=== PATIENT | female | born 1935 | race Caucasian/White ===

== ENCOUNTER 2017-12-29 16:05 | Inpatient (IN) | payer OTHER ==
--- NOTE | 2017-12-29 16:14 | PDOC ---
Attending Attestation - HPI HPI: 12/29/17 18:22 The patient is an 82-year-old female from [facility], with a significant past medical history of HTN, RA, a-fib, CHF, and COPD, who presents to the ED with shortness of breath today. The HPI is limited due to patients mental status. Allergies: NKA PCP: Dr Jenna Zuniga - Physicial Exam PE: 12/29/17 18:47 GENERAL: The patient is in no acute distress. Afebrile. HEAD: Normal with no signs of trauma. EYES: PERRLA, EOMI, sclera anicteric, conjunctiva clear. ENT: Ears normal, nares patent, oropharynx clear without exudates. Moist mucous membranes. NECK: Normal range of motion, supple without lymphadenopathy, JVD, or masses. LUNGS: (+)Rhonchorous breath sounds. HEART:Regular rate and rhythm, normal S1 and S2 without murmur, rub or gallop. ABDOMEN: Soft, nontender, normoactive bowel sounds. No guarding, no rebound. EXTREMITIES: Normal range of motion, no edema. No clubbing or cyanosis. No erythema, or tenderness. NEUROLOGICAL: (+)Patient seems confused. MUSCULOSKELETAL: Back non-tender to palpation, no CVA tenderness SKIN: Warm, Dry, normal turgor, no rashes or lesions noted. <Haydee Kumar - Last Filed: 12/29/17 18:46> - Resident Resident Name: Thai Harris - ED Attending Attestation I have performed the following: I have examined & evaluated the patient, The case was reviewed & discussed with the resident, I agree w/resident's findings & plan, Exceptions are as noted - Medical Decision Making 12/29/17 17:09 Ms Mays presents to the ER due to fevers and cough Pt is confused There is no long-term paperwork present with this patient Will do sepsis orderset Will do CXR Will give empiric abx EKG:Afib, rate of 96 bpm, axis nnml, no st elevations or depressions, low voltage, t waves upright 12/29/17 18:25 Laboratory Tests 12/29/17 12/29/17 12/29/17 16:19 16:19 16:19 WBC 15.1 H Hgb 12.3 Plt Count 455 H INR 1.95 H Lactic Acid 1.8 CXR: Infiltrate R middle lobe Will give Vanc and ZOsyn Pt s/p recent admission to OSH (then transferred to [facility]) 12/29/17 18:32 Clinical Impression: pneumonia, initial presentation UA pending <Henna Holedr - Last Filed: 12/31/17 08:12> Attestations - Attestations 12/29/17 18:49 Documentation prepared by Haydee Kumar, acting as medical assembler for Henna Holder MD. <Haydee Kumar - Last Filed: 12/29/17 18:46>
[2017-12-29 16:20] VITALS: BMI 40.3
--- NOTE | 2017-12-29 16:22 | PDOC ---
History of Present Illness - General Chief Complaint: Shortness of Breath Stated Complaint: SHORTNESS OF BREATH - History of Present Illness Initial Comments: 12/29/17 16:19 82 yo F with h/o HTN, RA, A-fib, CHF, COPD, recent bronchial PNA who BIBA from [facility] ( [facility]) with SOB. Per intermediate staff patient with increased SOB, and lethargy this afternoon following physical therapy and hypoxic on room air, with O2 92% 3 L NC. Patient placed on 12 L NRB per EMS and O2 improved to 90%, with improvement in mental status, more alert. Patient is poor historian with poor insight. Was slightly tachycardic 126. Patient without complaints. Continued productive cough, with clear sputum production following admission from OSH. Denies F/C, N/V, orthpnea, CP, SOB, abdominal pain, diarrhea, constipation, urinary complaints, weakness, lightheadedness, sensory changes. PMHx: as noted above. Denies h/o ACS/OR. ROS: as noted above SHx: Denies Etoh, IVDA. Distant smoking history. PMD: Dr Jenna Zuniga Past History - Past Medical History Allergies/Adverse Reactions: Allergies Allergy/AdvReac Type Severity Reaction Status Date / Time No Known Allergies Allergy Verified 12/29/17 16:37 Home Medications: Ambulatory Orders Abatacept [Orencia] 125 mg SQ WEEKLY 12/29/17 Acetaminophen 325 mg PO QID 12/29/17 Albuterol 2.5/Ipratropium 0.5 [Duoneb -] 1 amp NEB QID 12/29/17 Albuterol Sulfate Inhaler - [Ventolin HFA Inhaler -] 2 puff IH QID 12/29/17 Apixaban [Eliquis] 5 mg PO BID 12/29/17 Bacitracin Zinc 1 each TP HS 12/29/17 Carbidopa/Levodopa [Carbidopa-Levodopa 25-100 Tab] 1 each PO TID 12/29/17 Diclofenac Sodium [Diclo Gel] 1 each TP QID 12/29/17 Digoxin 125 mcg PO DAILY 12/29/17 Docusate Sodium [Colace] 200 mg PO DAILY 12/29/17 Fluticasone Propionate [Flovent Diskus] 2 sprays IN DAILY 12/29/17 Folic Acid 1 mg PO DAILY 12/29/17 Furosemide [Lasix] 40 mg PO DAILY 12/29/17 Gabapentin 400 mg PO TID 12/29/17 Guaifenesin 100 mg PO QID 12/29/17 HYDROmorphone [Dilaudid -] 2 mg PO PRN 12/29/17 Levothyroxine [Synthroid -] 88 mcg PO DAILY 12/29/17 Loratadine 10 mg PO DAILY 12/29/17 Methotrexate Sodium [Methotrexate] 2.5 mg PO WEEKLY 12/29/17 Methylprednisolone [Medrol -] 4 mg PO ASDIR 12/29/17 Metoprolol Tartrate 50 mg PO BID 12/29/17 Oyster Shell+D 250 mg Tablet 1 tab PO DAILY 12/29/17 Sennosides [Senna] 2 tab PO DAILY 12/29/17 Silver Sulfadiazine 1% Top Cr [Silvadene -] 1 applic TP HS 12/29/17 - Suicide/Smoking/Psychosocial Hx Smoking History: Never smoked Have you smoked in the past 12 months: No Information on smoking cessation initiated: No Hx Alcohol Use: No Drug/Substance Use Hx: No Review of Systems - Review of Systems Comments:: 12/29/17 16:20 GENERAL/CONSTITUTIONAL: No fever or chills. No weakness. HEAD, EYES, EARS, NOSE AND THROAT: No change in vision. No ear pain or discharge. No sore throat. CARDIOVASCULAR: No chest pain or shortness of breath RESPIRATORY: +SOB. No cough, wheezing, or hemoptysis. GASTROINTESTINAL: No nausea, vomiting, diarrhea or constipation. GENITOURINARY: No dysuria, frequency, or change in urination. MUSCULOSKELETAL: No joint or muscle swelling or pain. No neck or back pain. SKIN: No rash NEUROLOGIC: No headache, vertigo, loss of consciousness, or change in strength/ sensation. ENDOCRINE: No increased thirst. No abnormal weight change HEMATOLOGIC/LYMPHATIC: No anemia, easy bleeding, or history of blood clots. ALLERGIC/IMMUNOLOGIC: No hives or skin allergy. *Physical Exam - Vital Signs Last Vital Signs Temp Pulse Resp BP Pulse Ox 101.6 F H 89 16 111/84 94 L 12/29/17 16:10 12/29/17 16:10 12/29/17 16:10 12/29/17 16:10 12/29/17 16:10 - Physical Exam Comments: 12/29/17 16:21 GENERAL: Awake, alert, and fully oriented, in no acute distress HEAD: No signs of trauma, normocephalic, atraumatic EYES: PERRLA, EOMI, sclera anicteric, conjunctiva clear ENT: Hearing grossly normal, nares patent, oropharynx clear without exudates. Moist mucosa NECK: Normal ROM, supple, no lymphadenopathy, JVD, or masses LUNGS:+ diffuse rales, and exp rhonci. HEART: Regular rate and rhythm, normal S1 and S2, no murmurs, rubs or gallops, peripheral pulses normal and equal bilaterally. ABDOMEN: Soft, nontender, normoactive bowel sounds. No guarding, no rebound. No masses EXTREMITIES :2 + BL LE edema. Normal inspection, Normal range of motion, no edema. No clubbing or cyanosis. SKIN: Warm, Dry, normal turgor, no rashes or lesions noted ED Treatment Course - LABORATORY CBC & Chemistry Diagram: 12/29/17 16:19 12/29/17 18:00 Medical Decision Making - Medical Decision Making 12/29/17 16:21 82 yo F with h/o HTN, RA, A-fib ( Eliquis) , CHF, COPD,recent bronchial PNA who BIBA from OS ( [facility]) increased SOB, and lethargy this afternoon following physical therapy. Patient noted to be hypoxic on room air, with O2 increased to 92% following 3 L NC and slightly tachycardic 126. Patient without complaints. Continued productive cough, with clear sputum production. VSS, Rectal Temp 101.6, A&Ox3. + Diffuse exp rhonci and BL LL base rales. ACS/OR r/ o. Will consider PNA, acute CHF exacerbation. low risk PE based on Weils critera. Will assess for electrolyte abnml, toxic or metabolic derangements,acid -base disturbances, or underlying infection. ED Course: Sepsis Protocol CBC,CMP, PT/INR, Cardiac Pr., BNP, LA Blood Cx. Urine Cx. UA EKG, CXR 12/29/17 15:55 EKG: A-fib with RvR, Low voltage criteria. RBBB, No acute PATO, STD, or TWI. 12/29/17 16:45 WBC: 15.1 Called [facility] , sent over medical records. 12/29/17 18:34 WBC 15.1 Lactic Acid 2.2. 12/29/17 19:03 CXR: Cardiomegaly, BL pleural effusions. Possible middle right lobe infiltrate. Started on Vanc and Zosyn. *DC/Admit/Observation/Transfer Diagnosis at time of Disposition: Right middle lobe pneumonia Qualifiers: Pneumonia type: due to unspecified organism Qualified Code(s): J18.1 - Lobar pneumonia, unspecified organism - Discharge Dispostion Disposition: HOME Condition at time of disposition: Stable Decision to Admit order: Yes - Referrals Referrals: Jazmin Allison MD [Primary Care Provider] - - Patient Instructions - Post Discharge Activity
[2017-12-29 16:34] LABS: BASO % 0.8 % (0-2.0); EOS % 0.9 % (0-4.5); HEMATOCRIT 37.6 % (32.4-45.2); HEMOGLOBIN 12.3 GM/dL (10.7-15.3); LYMPH % 15.6 % (8-40); MCH 32.7 pg (25.7-33.7); MCHC 32.9 g/dl (32.0-36.0); MEAN CELL VOLUME 99.7 fl (80-96); MONO % 9.6 % (3.8-10.2); NEUT % 73.1 % (42.8-82.8); PLATELET COUNT 455 K/MM3 (134-434); RBC 3.77 M/mm3 (3.60-5.2); WHITE BLOOD COUNT 15.1 K/mm3 (4.0-10.0)
[2017-12-29] MEDS ORDERED: SODIUM CHLORIDE 1,000 ML IV STA (16:52)
[2017-12-29 17:25] LABS: INR 1.95 (0.82-1.09)
[2017-12-29 17:27] LABS: ACTIVATED PTT 38.5 SECONDS (26.9-34.4)
[2017-12-29] MEDS ORDERED: ACETAMINOPHEN 1000 MG/100 ML VIAL (NON FORMULARY) IVPB ONE (17:33)
[2017-12-29] MEDS ORDERED: ACETAMINOPHEN INJECTION 100 ML IVPB ONE (17:35)
[2017-12-29] MEDS ORDERED: PIPERACILLIN/TAZOB 4.5 GM 4.5 GM in DEXTROSE 5%-WATER 100 ML IVPB ONE (18:31)
[2017-12-29] MEDS ORDERED: VANCOMYCIN 1,000 MG in DEXTROSE 5%-WATER - 250 ML IVPB ONE (18:31)
[2017-12-29] MEDS ORDERED: PIPERACILLIN/TAZOB 4.5 GM 4.5 GM/100 ML BAG IVPB ONE (18:41)
[2017-12-29] MEDS ORDERED: VANCOMYCIN 1 GRAM (PRE-DOCKED) 1,000 MG/250 ML BAG IVPB ONE (18:41)
[2017-12-29 18:49] LABS: ALBUMIN 2.3 g/dl (3.4-5.0); ANION GAP 8 (8-16); BILIRUBIN,TOTAL 0.6 mg/dL (0.2-1.0); BLOOD UREA NITROGEN 8 mg/dL (7-18); CALCIUM 7.4 mg/dL (8.5-10.1); CHLORIDE 94 mmol/L (98-107); CO2 32 mmol/L (21-32); CREATININE 0.7 mg/dL (0.55-1.02); GLUCOSE,RANDOM 119 mg/dL (74-106); POTASSIUM 3.6 mmol/L (3.5-5.1); SGOT/AST 15 U/L (15-37); SGPT/ALT 6 U/L (12-78); SODIUM 134 mmol/L (136-145); TOT PROT 5.6 g/dl (6.4-8.2)
[2017-12-29 18:51] LABS: ALK PHOS 147 U/L (45-117)
[2017-12-29 19:01] LABS: URINE APPEARANCE SLCLOUDY; URINE BILIRUBIN NEGATIVE (<2.0 mg/dL); URINE COLOR YELLOW; URINE GLUCOSE (UA) NEGATIVE (NEGATIVE); URINE KETONE NEGATIVE (NEGATIVE); URINE NITRITE NEGATIVE (NEGATIVE); URINE PROTEIN NEGATIVE (NEGATIVE); URINE UROBILINOGEN NEGATIVE mg/dL (0.2-1.0)
[2017-12-29 19:09] LABS: URINE LEUK ESTERASE 3+ (NEGATIVE)
[2017-12-29 19:11] LABS: EPI CELLS RARE /HPF (FEW); URINE HYALINE CAST 4 /lpf; URINE MUCUS RARE
--- NOTE | 2017-12-29 19:26 | CON.ID ---
Consult Consult Specialty:: infectious diseases Reason for Consultation:: pneumonia - History of Present Illness Chief Complaint: sob sputum production History of Present Illness: 82 yo F with h/o HTN, RA, A-fib, CHF, COPD, recent bronchial PNA who BIBA from [facility] ( [facility]) with SOB. Per custodial staff patient with increased SOB, and lethargy this afternoon following physical therapy and hypoxic on room air, with O2 92% 3 L NC. Patient placed on 12 L NRB per EMS and O2 improved to 90%, with improvement in mental status, more alert. Patient is poor historian with poor insight. Was slightly tachycardic 126. Patient without complaints. Continued productive cough, with clear sputum production following admission from OSH. patient unable to give any history which is taken from the charts according to further enquiry it seems patient got some abx she is c/o of cough - History Source History Provided By: Patient, Medical Record Limitations to Obtaining History: Poor Historian - Alcohol/Substance Use Hx Alcohol Use: No - Smoking History Smoking history: Never smoked Have you smoked in the past 12 months: No Home Medications - Allergies Allergies/Adverse Reactions: Allergies Allergy/AdvReac Type Severity Reaction Status Date / Time No Known Allergies Allergy Verified 12/29/17 16:37 - Home Medications Home Medications: Ambulatory Orders Abatacept [Orencia] 125 mg SQ WEEKLY 12/29/17 Acetaminophen 325 mg PO QID 12/29/17 Albuterol 2.5/Ipratropium 0.5 [Duoneb -] 1 amp NEB QID 12/29/17 Albuterol Sulfate Inhaler - [Ventolin HFA Inhaler -] 2 puff IH QID 12/29/17 Apixaban [Eliquis] 5 mg PO BID 12/29/17 Bacitracin Zinc 1 each TP HS 12/29/17 Carbidopa/Levodopa [Carbidopa-Levodopa 25-100 Tab] 1 each PO TID 12/29/17 Diclofenac Sodium [Diclo Gel] 1 each TP QID 12/29/17 Digoxin 125 mcg PO DAILY 12/29/17 Docusate Sodium [Colace] 200 mg PO DAILY 12/29/17 Fluticasone Propionate [Flovent Diskus] 2 sprays IN DAILY 12/29/17 Folic Acid 1 mg PO DAILY 12/29/17 Furosemide [Lasix] 40 mg PO DAILY 12/29/17 Gabapentin 400 mg PO TID 12/29/17 Guaifenesin 100 mg PO QID 12/29/17 HYDROmorphone [Dilaudid -] 2 mg PO PRN 12/29/17 Levothyroxine [Synthroid -] 88 mcg PO DAILY 12/29/17 Loratadine 10 mg PO DAILY 12/29/17 Methotrexate Sodium [Methotrexate] 2.5 mg PO WEEKLY 12/29/17 Methylprednisolone [Medrol -] 4 mg PO ASDIR 12/29/17 Metoprolol Tartrate 50 mg PO BID 12/29/17 Oyster Shell+D 250 mg Tablet 1 tab PO DAILY 12/29/17 Sennosides [Senna] 2 tab PO DAILY 12/29/17 Silver Sulfadiazine 1% Top Cr [Silvadene -] 1 applic TP HS 12/29/17 Review of Systems - Review of Systems Constitutional: reports: No Symptoms Eyes: reports: No Symptoms HENT: reports: No Symptoms Neck: reports: No Symptoms Cardiovascular: reports: No Symptoms Respiratory: reports: Cough, SOB Gastrointestinal: reports: No Symptoms Genitourinary: reports: No Symptoms Musculoskeletal: reports: No Symptoms Integumentary: reports: No Symptoms Neurological: reports: No Symptoms Endocrine: reports: No Symptoms Hematology/Lymphatic: reports: No Symptoms Psychiatric: reports: No Symptoms Physical Exam Vital Signs: Vital Signs Temperature 98.9 F 12/29/17 18:19 Pulse Rate 81 12/29/17 18:19 Respiratory Rate 16 12/29/17 18:19 Blood Pressure 99/59 12/29/17 18:19 O2 Sat by Pulse Oximetry (%) 100 12/29/17 18:19 Constitutional: Yes: Calm, Mild Distress Eyes: Yes: Conjunctiva Clear Cardiovascular: Yes: Pulse Irregular, S1, S2 Respiratory: Yes: On Nasal O2, Poor Air Entry, Rhonchi Gastrointestinal: Yes: Normal Bowel Sounds, Soft Musculoskeletal: Yes: WNL Extremities: Yes: WNL Neurological: Yes: Alert, Confusion Psychiatric: Yes: Alert Labs: CBC, BMP 12/29/17 16:19 12/29/17 18:00 Imaging - Results Chest X-ray: Report Reviewed, Image Reviewed Assessment/Plan Problem List - Problems (1) Afib Code(s): I48.91 - UNSPECIFIED ATRIAL FIBRILLATION Qualifiers: Atrial fibrillation type: permanent Qualified Code(s): I48.2 - Chronic atrial fibrillation (2) CHF (congestive heart failure) Code(s): I50.9 - HEART FAILURE, UNSPECIFIED Qualifiers: Heart failure type: diastolic Heart failure chronicity: acute on chronic Qualified Code(s): I50.33 - Acute on chronic diastolic (congestive) heart failure (3) COPD (chronic obstructive pulmonary disease) Code(s): J44.9 - CHRONIC OBSTRUCTIVE PULMONARY DISEASE, UNSPECIFIED Qualifiers: COPD type: unspecified COPD Qualified Code(s): J44.9 - Chronic obstructive pulmonary disease, unspecified (4) HTN (hypertension) Code(s): I10 - ESSENTIAL (PRIMARY) HYPERTENSION Qualifiers: Hypertension type: essential hypertension Qualified Code(s): I10 - Essential (primary) hypertension (5) Rheumatoid arthritis Code(s): M06.9 - RHEUMATOID ARTHRITIS, UNSPECIFIED Qualifiers: Rheumatoid arthritis location: unspecified site 6 pneumonia plan will start patient on abx cardio to see the patient rest ct as per the team continue to monitor the patient
--- NOTE | 2017-12-29 21:57 | HP ---
Admitting History and Physical - Primary Care Physician PCP: Susana Mckinley - Admission History of Present Illness: 82 yo F with h/o HTN, RA, A-fib, CHF, COPD, recent bronchial PNA who BIBA from [facility] ( [facility]) with SOB. Per jail staff patient with increased SOB, and lethargy this afternoon following physical therapy and hypoxic on room air, with O2 92% 3 L NC. Patient placed on 12 L NRB per EMS and O2 improved to 90%, with improvement in mental status, more alert. Patient is poor historian with poor insight. Was slightly tachycardic 126. Patient without complaints. Continued productive cough, with clear sputum production following admission from OSH. - Past Medical History Cardiovascular: Yes: AFIB, CHF, HTN Pulmonary: Yes: COPD - Smoking History Smoking history: Never smoked Have you smoked in the past 12 months: No - Alcohol/Substance Use Hx Alcohol Use: No Home Medications - Allergies Allergies/Adverse Reactions: Allergies Allergy/AdvReac Type Severity Reaction Status Date / Time No Known Allergies Allergy Verified 12/29/17 16:37 - Home Medications Home Medications: Ambulatory Orders Abatacept [Orencia] 125 mg SQ WEEKLY 12/29/17 Acetaminophen 325 mg PO QID 12/29/17 Albuterol 2.5/Ipratropium 0.5 [Duoneb -] 1 amp NEB QID 12/29/17 Albuterol Sulfate Inhaler - [Ventolin HFA Inhaler -] 2 puff IH QID 12/29/17 Apixaban [Eliquis] 5 mg PO BID 12/29/17 Bacitracin Zinc 1 each TP HS 12/29/17 Carbidopa/Levodopa [Carbidopa-Levodopa 25-100 Tab] 1 each PO TID 12/29/17 Diclofenac Sodium [Diclo Gel] 1 each TP QID 12/29/17 Digoxin 125 mcg PO DAILY 12/29/17 Docusate Sodium [Colace] 200 mg PO DAILY 12/29/17 Fluticasone Propionate [Flovent Diskus] 2 sprays IN DAILY 12/29/17 Folic Acid 1 mg PO DAILY 12/29/17 Furosemide [Lasix] 40 mg PO DAILY 12/29/17 Gabapentin 400 mg PO TID 12/29/17 Guaifenesin 100 mg PO QID 12/29/17 HYDROmorphone [Dilaudid -] 2 mg PO PRN 12/29/17 Levothyroxine [Synthroid -] 88 mcg PO DAILY 12/29/17 Loratadine 10 mg PO DAILY 12/29/17 Methotrexate Sodium [Methotrexate] 2.5 mg PO WEEKLY 12/29/17 Methylprednisolone [Medrol -] 4 mg PO ASDIR 12/29/17 Metoprolol Tartrate 50 mg PO BID 12/29/17 Oyster Shell+D 250 mg Tablet 1 tab PO DAILY 12/29/17 Sennosides [Senna] 2 tab PO DAILY 12/29/17 Silver Sulfadiazine 1% Top Cr [Silvadene -] 1 applic TP HS 12/29/17 Physical Examination Vital Signs: Vital Signs Temperature 98 F 12/29/17 20:25 Pulse Rate 78 12/29/17 20:25 Respiratory Rate 16 12/29/17 20:25 Blood Pressure 104/57 12/29/17 20:25 O2 Sat by Pulse Oximetry (%) 96 12/29/17 20:25 Constitutional: Yes: No Distress HENT: Yes: Atraumatic Neck: Yes: Supple Cardiovascular: Yes: Regular Rate and Rhythm Respiratory: Yes: Rhonchi, Wheezes Gastrointestinal: Yes: Normal Bowel Sounds Extremities: Yes: WNL Edema: No Peripheral Pulses WNL: Yes Neurological: Yes: Alert, Oriented Labs: CBC, BMP 12/29/17 16:19 12/29/17 18:00 Problem List - Problems (1) Right middle lobe pneumonia Assessment/Plan: on iv abx cxs sent id on board Code(s): J18.1 - LOBAR PNEUMONIA, UNSPECIFIED ORGANISM Qualifiers: Pneumonia type: due to unspecified organism Qualified Code(s): J18.1 - Lobar pneumonia, unspecified organism (2) HTN (hypertension) Assessment/Plan: on meds stable Code(s): I10 - ESSENTIAL (PRIMARY) HYPERTENSION Qualifiers: Hypertension type: essential hypertension Qualified Code(s): I10 - Essential (primary) hypertension (3) CHF (congestive heart failure) Code(s): I50.9 - HEART FAILURE, UNSPECIFIED Qualifiers: Heart failure type: diastolic Heart failure chronicity: acute on chronic Qualified Code(s): I50.33 - Acute on chronic diastolic (congestive) heart failure (4) COPD (chronic obstructive pulmonary disease) Assessment/Plan: duo nebs prn Code(s): J44.9 - CHRONIC OBSTRUCTIVE PULMONARY DISEASE, UNSPECIFIED Qualifiers: COPD type: unspecified COPD Qualified Code(s): J44.9 - Chronic obstructive pulmonary disease, unspecified (5) Afib Assessment/Plan: on eliquis and other meds Code(s): I48.91 - UNSPECIFIED ATRIAL FIBRILLATION Qualifiers: Atrial fibrillation type: permanent Qualified Code(s): I48.2 - Chronic atrial fibrillation (6) Hypothyroid Assessment/Plan: on meds stable Code(s): E03.9 - HYPOTHYROIDISM, UNSPECIFIED Assessment/Plan Laboratory Tests 12/29/1718 12/29/17 16:19 16:19 16:19 WBC 15.1 H RBC 3.77 Hgb 12.3 Hct 37.6 MCV 99.7 H MCH 32.7 MCHC 32.9 RDW 17.0 H Plt Count 455 H MPV 9.0 Absolute Neuts (auto) 11.0 Neutrophils % 73.1 Lymphocytes % 15.6 Monocytes % 9.6 Eosinophils % 0.9 Basophils % 0.8 Nucleated RBC % 0 PT with INR 22.00 H INR 1.95 H PTT (Actin FS) 38.5 H Sodium Potassium Chloride Carbon Dioxide Anion Gap BUN Creatinine Creat Clearance w eGFR Random Glucose Lactic Acid Calcium Total Bilirubin AST ALT Alkaline Phosphatase Creatine Kinase Troponin I Total Protein Albumin Urine Color Yellow Urine Appearance Slcloudy Urine pH 6.0 Ur Specific [place] 1.012 Urine Protein Negative Urine Glucose (UA) Negative Urine Ketones Negative Urine Blood Negative Urine Nitrite Negative Urine Bilirubin Negative Urine Urobilinogen Negative Ur Leukocyte Esterase 3+ H Urine WBC (Auto) 77 Urine RBC (Auto) 7 Ur Epithelial Cells Rare Hyaline Casts 4 Urine Mucus Rare 12/29/17 12/29/17 12/29/17 16:19 16:19 16:19 WBC RBC Hgb Hct MCV MCH MCHC RDW Plt Count MPV Absolute Neuts (auto) Neutrophils % Lymphocytes % Monocytes % Eosinophils % Basophils % Nucleated RBC % PT with INR INR PTT (Actin FS) Sodium Cancelled Potassium Cancelled Chloride Cancelled Carbon Dioxide Cancelled Anion Gap Cancelled BUN Cancelled Creatinine Cancelled Creat Clearance w eGFR Cancelled Random Glucose Cancelled Lactic Acid 1.8 Calcium Cancelled Total Bilirubin Cancelled AST Cancelled ALT Cancelled Alkaline Phosphatase Cancelled Creatine Kinase Troponin I Cancelled Total Protein Cancelled Albumin Cancelled Urine Color Urine Appearance Urine pH Ur Specific [place] Urine Protein Urine Glucose (UA) Urine Ketones Urine Blood Urine Nitrite Urine Bilirubin Urine Urobilinogen Ur Leukocyte Esterase Urine WBC (Auto) Urine RBC (Auto) Ur Epithelial Cells Hyaline Casts Urine Mucus 12/29/17 12/29/17 18:00 18:02 WBC RBC Hgb Hct MCV MCH MCHC RDW Plt Count MPV Absolute Neuts (auto) Neutrophils % Lymphocytes % Monocytes % Eosinophils % Basophils % Nucleated RBC % PT with INR INR PTT (Actin FS) Sodium 134 L Potassium 3.6 Chloride 94 L Carbon Dioxide 32 Anion Gap 8 BUN 8 Creatinine 0.7 Creat Clearance w eGFR > 60 Random Glucose 119 H Lactic Acid 2.2 H* Calcium 7.4 L Total Bilirubin 0.6 AST 15 ALT 6 L Alkaline Phosphatase 147 H Creatine Kinase 44 Troponin I < 0.02 Total Protein 5.6 L Albumin 2.3 L Urine Color Urine Appearance Urine pH Ur Specific [place] Urine Protein Urine Glucose (UA) Urine Ketones Urine Blood Urine Nitrite Urine Bilirubin Urine Urobilinogen Ur Leukocyte Esterase Urine WBC (Auto) Urine RBC (Auto) Ur Epithelial Cells Hyaline Casts Urine Mucus Active Medications Generic Name Dose Route Start Last Admin Trade Name Freq PRN Reason Stop Dose Admin Piperacillin Sod/Tazobactam 50 mls @ 100 mls/hr 12/30/17 02:00 Sod 3.375 gm/ Dextrose IVPB Q8H-IV [facility] Protocol Laboratory Tests 12/29/17 12/29/17 12/29/17 16:19 16:19 16:19 WBC 15.1 H RBC 3.77 Hgb 12.3 Hct 37.6 MCV 99.7 H MCH 32.7 MCHC 32.9 RDW 17.0 H Plt Count 455 H MPV 9.0 Absolute Neuts (auto) 11.0 Neutrophils % 73.1 Lymphocytes % 15.6 Monocytes % 9.6 Eosinophils % 0.9 Basophils % 0.8 Nucleated RBC % 0 PT with INR 22.00 H INR 1.95 H PTT (Actin FS) 38.5 H Sodium Potassium Chloride Carbon Dioxide Anion Gap BUN Creatinine Creat Clearance w eGFR Random Glucose Lactic Acid Calcium Total Bilirubin AST ALT Alkaline Phosphatase Creatine Kinase Troponin I Total Protein Albumin Urine Color Yellow Urine Appearance Slcloudy Urine pH 6.0 Ur Specific [place] 1.012 Urine Protein Negative Urine Glucose (UA) Negative Urine Ketones Negative Urine Blood Negative Urine Nitrite Negative Urine Bilirubin Negative Urine Urobilinogen Negative Ur Leukocyte Esterase 3+ H Urine WBC (Auto) 77 Urine RBC (Auto) 7 Ur Epithelial Cells Rare Hyaline Casts 4 Urine Mucus Rare 12/29/17 12/29/17 12/29/17 16:19 16:19 16:19 WBC RBC Hgb Hct MCV MCH MCHC RDW Plt Count MPV Absolute Neuts (auto) Neutrophils % Lymphocytes % Monocytes % Eosinophils % Basophils % Nucleated RBC % PT with INR INR PTT (Actin FS) Sodium Cancelled Potassium Cancelled Chloride Cancelled Carbon Dioxide Cancelled Anion Gap Cancelled BUN Cancelled Creatinine Cancelled Creat Clearance w eGFR Cancelled Random Glucose Cancelled Lactic Acid 1.8 Calcium Cancelled Total Bilirubin Cancelled AST Cancelled ALT Cancelled Alkaline Phosphatase Cancelled Creatine Kinase Troponin I Cancelled Total Protein Cancelled Albumin Cancelled Urine Color Urine Appearance Urine pH Ur Specific [place] Urine Protein Urine Glucose (UA) Urine Ketones Urine Blood Urine Nitrite Urine Bilirubin Urine Urobilinogen Ur Leukocyte Esterase Urine WBC (Auto) Urine RBC (Auto) Ur Epithelial Cells Hyaline Casts Urine Mucus 12/29/17 12/29/17 18:00 18:02 WBC RBC Hgb Hct MCV MCH MCHC RDW Plt Count MPV Absolute Neuts (auto) Neutrophils % Lymphocytes % Monocytes % Eosinophils % Basophils % Nucleated RBC % PT with INR INR PTT (Actin FS) Sodium 134 L Potassium 3.6 Chloride 94 L Carbon Dioxide 32 Anion Gap 8 BUN 8 Creatinine 0.7 Creat Clearance w eGFR > 60 Random Glucose 119 H Lactic Acid 2.2 H* Calcium 7.4 L Total Bilirubin 0.6 AST 15 ALT 6 L Alkaline Phosphatase 147 H Creatine Kinase 44 Troponin I < 0.02 Total Protein 5.6 L Albumin 2.3 L Urine Color Urine Appearance Urine pH Ur Specific [place] Urine Protein Urine Glucose (UA) Urine Ketones Urine Blood Urine Nitrite Urine Bilirubin Urine Urobilinogen Ur Leukocyte Esterase Urine WBC (Auto) Urine RBC (Auto) Ur Epithelial Cells Hyaline Casts Urine Mucus Active Medications Generic Name Dose Route Start Last Admin Trade Name Freq PRN Reason Stop Dose Admin Albuterol/Ipratropium 1 amp 12/30/17 08:00 12/31/17 16:40 Duoneb - NEB 1 amp RQID [facility] Administration Apixaban 5 mg 12/29/17 22:00 12/31/17 09:34 Eliquis - PO 5 mg BID [facility] Administration Carbidopa/Levodopa 1 each 12/29/17 22:00 12/31/17 13:34 Sinemet 25/100 - PO 1 each TID [facility] Administration Folic Acid 1 mg 12/30/17 10:00 12/31/17 09:34 Folic Acid - PO 1 mg DAILY [facility] Administration Furosemide 40 mg 12/30/17 10:00 12/31/17 09:34 Lasix Injection - IVPUSH 40 mg DAILY [facility] Administration Piperacillin Sod/Tazobactam 50 mls @ 100 mls/hr 12/30/17 02:00 12/31/17 17:27 Sod 3.375 gm/ Dextrose IVPB 100 mls/hr Q8H-IV [facility] Administration Protocol Levothyroxine Sodium 88 mcg 12/30/17 07:00 12/31/17 06:06 Synthroid - PO 88 mcg DAILY@0700 [facility] Administration Methotrexate 2.5 mg 01/02/18 10:00 Mexate - PO Blunt@1000 [facility] Metoprolol Tartrate 50 mg 12/29/17 22:00 12/31/17 09:34 Lopressor - PO 50 mg BID [facility] Administration
[2017-12-29] MEDS: CARBIDOPA/LEVODOPA 25/100 TABLET (FP) PO SCH (22:33)
[2017-12-29] MEDS: APIXABAN 5 MG TABLET PO SCH (22:34)
[2017-12-29] MEDS: METOPROLOL TARTRATE 50 MG TABLET (FP) PO SCH (23:04)
[2017-12-30] MEDS ORDERED: HYDROmorphone HCL 2 MG TABLET ONE ×2 (00:06→04:31)
[2017-12-30 01:17] LABS: VENOUS PC02 45.3 mmHg (38-52); VENOUS PH 7.46 (7.32-7.42); VENOUS PO2 24.7 mmHg (28-48)
[2017-12-30] MEDS: PIPERACILLIN/TAZOB 3.375 GM 3.375 GM in DEXTROSE 5%-WATER - 50 ML IVPB SCH ×3 (02:58→17:23)
[2017-12-30] MEDS ORDERED: PIPERACILLIN/TAZOB 3.375 GM 3.375 GM/50 ML BAG IVPB ONE ×2 (03:08→09:13)
[2017-12-30] MEDS: CARBIDOPA/LEVODOPA 25/100 TABLET (FP) PO SCH ×3 (06:13→21:21)
[2017-12-30] MEDS: LEVOTHYROXINE NA 88 MCG TABLET (FP) PO SCH (06:53)
[2017-12-30 08:09] LABS: BASO % 0.6 % (0-2.0); EOS % 1.1 % (0-4.5); HEMATOCRIT 36.7 % (32.4-45.2); HEMOGLOBIN 11.9 GM/dL (10.7-15.3); LYMPH % 13.1 % (8-40); MCH 32.6 pg (25.7-33.7); MCHC 32.5 g/dl (32.0-36.0); MEAN CELL VOLUME 100.4 fl (80-96); MEAN PLT VOLUME 8.7 fl (7.5-11.1); MONO % 9.6 % (3.8-10.2); NEUT % 75.6 % (42.8-82.8); PLATELET COUNT 284 K/MM3 (134-434); RBC 3.65 M/mm3 (3.60-5.2); RDW 16.6 % (11.6-15.6)
[2017-12-30 08:25] LABS: ALBUMIN 2.2 g/dl (3.4-5.0); ANION GAP 9 (8-16); BLOOD UREA NITROGEN 7 mg/dL (7-18); CALCIUM 7.4 mg/dL (8.5-10.1); CHLORIDE 97 mmol/L (98-107); CO2 29 mmol/L (21-32); CREATININE 0.5 mg/dL (0.55-1.02); GLUCOSE,RANDOM 111 mg/dL (74-106); POTASSIUM 3.6 mmol/L (3.5-5.1); SGOT/AST 15 U/L (15-37); SGPT/ALT < 6 U/L (12-78); SODIUM 135 mmol/L (136-145); TOT PROT 5.3 g/dl (6.4-8.2)
[2017-12-30 08:26] LABS: ALK PHOS 136 U/L (45-117)
[2017-12-30] MEDS: APIXABAN 5 MG TABLET PO SCH ×2 (09:29→21:21)
[2017-12-30] MEDS: DIGOXIN 0.125 MG TABLET (FP) PO SCH (09:29)
[2017-12-30] MEDS: METOPROLOL TARTRATE 50 MG TABLET (FP) PO SCH ×2 (09:29→21:21)
[2017-12-30] MEDS: FOLIC ACID 1 MG TABLET (FP) PO SCH (09:29)
[2017-12-30] MEDS: FUROSEMIDE 40 MG/4 ML INJECTABLE VIAL IVPUSH SCH (09:30)
[2017-12-30] MEDS ORDERED: FUROSEMIDE 40 MG TABLET (FP) PO SCH (10:00)
--- NOTE | 2017-12-30 11:30 | EKG ---
Test Reason : Blood Pressure : / mmHG Vent. Rate : 096 BPM Atrial Rate : 088 BPM P-R Int : 000 ms QRS Dur : 078 ms QT Int : 352 ms P-R-T Axes : 000 006 005 degrees QTc Int : 444 ms ATRIAL FIBRILLATION LOW VOLTAGE QRS ABNORMAL ECG NO PREVIOUS ECGS AVAILABLE Confirmed by KAIT TINOCO MD ([id number]) on 12/30/2017 11:30:05 AM Referred By: Confirmed By:KAIT TINOCO MD
--- NOTE | 2017-12-30 11:31 | CON.CARD ---
Consult Consult Specialty:: Cardiology Referred by:: Dr. Mckinley Reason for Consultation:: Cardiac evaluation - History of Present Illness History of Present Illness: Patient is an 82 year old female with underlying history of HTN, RA, AF, COPD, history of pneumonia and CHF who presents from [facility] with increased shortness of breath and lethargy. She was found to be hypoxic and was put on O2 NRB and now on NC. She is awake but appears confused with underlying organic brain/dementia. She denies chest pain, shortness of breath or palpitations. She denies paroxysmal nocturnal dyspnea or orthopnea. She denies fever or chills. She denies nausea, vomiting, diarrhea or abdominal pain. She has productive cough with clear sputum. Denies headache or lightheadedness. Poor historian. PMD: Dr Jenna Zuniga - History Source History Provided By: Medical Record Limitations to Obtaining History: Dementia - Past Medical History Cardio/Vascular: Yes: AFIB, CHF, HTN Pulmonary: Yes: COPD - Alcohol/Substance Use Hx Alcohol Use: No - Smoking History Smoking history: Never smoked Have you smoked in the past 12 months: No Home Medications - Allergies Allergies/Adverse Reactions: Allergies Allergy/AdvReac Type Severity Reaction Status Date / Time No Known Allergies Allergy Verified 12/29/17 16:37 - Home Medications Home Medications: Ambulatory Orders Abatacept [Orencia] 125 mg SQ WEEKLY 12/29/17 Acetaminophen 325 mg PO QID 12/29/17 Albuterol 2.5/Ipratropium 0.5 [Duoneb -] 1 amp NEB QID 12/29/17 Albuterol Sulfate Inhaler - [Ventolin HFA Inhaler -] 2 puff IH QID 12/29/17 Apixaban [Eliquis] 5 mg PO BID 12/29/17 Bacitracin Zinc 1 each TP HS 12/29/17 Carbidopa/Levodopa [Carbidopa-Levodopa 25-100 Tab] 1 each PO TID 12/29/17 Diclofenac Sodium [Diclo Gel] 1 each TP QID 12/29/17 Digoxin 125 mcg PO DAILY 12/29/17 Docusate Sodium [Colace] 200 mg PO DAILY 12/29/17 Fluticasone Propionate [Flovent Diskus] 2 sprays IN DAILY 12/29/17 Folic Acid 1 mg PO DAILY 12/29/17 Furosemide [Lasix] 40 mg PO DAILY 12/29/17 Gabapentin 400 mg PO TID 12/29/17 Guaifenesin 100 mg PO QID 12/29/17 HYDROmorphone [Dilaudid -] 2 mg PO PRN 12/29/17 Levothyroxine [Synthroid -] 88 mcg PO DAILY 12/29/17 Loratadine 10 mg PO DAILY 12/29/17 Methotrexate Sodium [Methotrexate] 2.5 mg PO WEEKLY 12/29/17 Methylprednisolone [Medrol -] 4 mg PO ASDIR 12/29/17 Metoprolol Tartrate 50 mg PO BID 12/29/17 Oyster Shell+D 250 mg Tablet 1 tab PO DAILY 12/29/17 Sennosides [Senna] 2 tab PO DAILY 12/29/17 Silver Sulfadiazine 1% Top Cr [Silvadene -] 1 applic TP HS 12/29/17 Family Disease History - Family Disease History Family History: Unable to Obtain Review of Systems Unable to obtain ROS, reason: Unable to obtain Vital Signs: Vital Signs Temperature 98.6 F 12/30/17 08:38 Pulse Rate 110 H 12/30/17 08:38 Respiratory Rate 20 12/30/17 08:38 Blood Pressure 112/84 12/30/17 08:38 O2 Sat by Pulse Oximetry (%) 96 12/30/17 08:38 Neck: Yes: Supple Respiratory: Yes: Diminished Gastrointestinal: Yes: Normal Bowel Sounds, Soft. No: Tenderness Cardiovascular: Yes: Pulse Irregular JVD: No Carotid Bruit: No PMI: Non-Displaced Heart Sounds: Yes: S1, S2 Murmur: Yes: Systolic Murmur, Grade 1 Edema: Yes Edema: LLE: 1+, RLE: 1+ - Other Data Labs, Other Data: CBC, BMP 12/30/17 06:20 12/30/17 06:20 INR, PTT INR 1.95 (0.82-1.09) H 12/29/17 16:19 Troponin, BNP 12/29/17 12/29/17 16:19 18:00 Troponin I Cancelled < 0.02 Laboratory Results - last 24 hr 12/29/17 12/29/17 12/29/17 16:19 16:19 16:19 WBC 15.1 H RBC 3.77 Hgb 12.3 Hct 37.6 MCV 99.7 H MCH 32.7 MCHC 32.9 RDW 17.0 H Plt Count 455 H MPV 9.0 Absolute Neuts (auto) 11.0 Neutrophils % 73.1 Lymphocytes % 15.6 Monocytes % 9.6 Eosinophils % 0.9 Basophils % 0.8 Nucleated RBC % 0 Platelet Comment PT with INR 22.00 H INR 1.95 H PTT (Actin FS) 38.5 H VBG pH POC VBG pCO2 POC VBG pO2 Mixed VBG HCO3 Sodium Potassium Chloride Carbon Dioxide Anion Gap BUN Creatinine Creat Clearance w eGFR Random Glucose Lactic Acid Calcium Total Bilirubin AST ALT Alkaline Phosphatase Creatine Kinase Troponin I Total Protein Albumin Urine Color Yellow Urine Appearance Slcloudy Urine pH 6.0 Ur Specific [place] 1.012 Urine Protein Negative Urine Glucose (UA) Negative Urine Ketones Negative Urine Blood Negative Urine Nitrite Negative Urine Bilirubin Negative Urine Urobilinogen Negative Ur Leukocyte Esterase 3+ H Urine WBC (Auto) 77 Urine RBC (Auto) 7 Ur Epithelial Cells Rare Hyaline Casts 4 Urine Mucus Rare 12/29/17 12/29/17 12/29/17 18:00 18:02 18:02 WBC RBC Hgb Hct MCV MCH MCHC RDW Plt Count MPV Absolute Neuts (auto) Neutrophils % Lymphocytes % Monocytes % Eosinophils % Basophils % Nucleated RBC % Platelet Comment PT with INR INR PTT (Actin FS) VBG pH 7.46 H POC VBG pCO2 45.3 POC VBG pO2 24.7 L Mixed VBG HCO3 31.8 H Sodium 134 L Potassium 3.6 Chloride 94 L Carbon Dioxide 32 Anion Gap 8 BUN 8 Creatinine 0.7 Creat Clearance w eGFR > 60 Random Glucose 119 H Lactic Acid 2.2 H* Calcium 7.4 L Total Bilirubin 0.6 AST 15 ALT 6 L Alkaline Phosphatase 147 H Creatine Kinase 44 Troponin I < 0.02 Total Protein 5.6 L Albumin 2.3 L Urine Color Urine Appearance Urine pH Ur Specific [place] Urine Protein Urine Glucose (UA) Urine Ketones Urine Blood Urine Nitrite Urine Bilirubin Urine Urobilinogen Ur Leukocyte Esterase Urine WBC (Auto) Urine RBC (Auto) Ur Epithelial Cells Hyaline Casts Urine Mucus 12/30/17 12/30/17 06:20 06:20 WBC 17.0 H RBC 3.65 Hgb 11.9 Hct 36.7 MCV 100.4 H MCH 32.6 MCHC 32.5 RDW 16.6 H Plt Count 284 D MPV 8.7 Absolute Neuts (auto) 12.9 Neutrophils % 75.6 Lymphocytes % 13.1 Monocytes % 9.6 Eosinophils % 1.1 Basophils % 0.6 Nucleated RBC % 0 Platelet Comment No clumping noted PT with INR INR PTT (Actin FS) VBG pH POC VBG pCO2 POC VBG pO2 Mixed VBG HCO3 Sodium 135 L Potassium 3.6 Chloride 97 L Carbon Dioxide 29 Anion Gap 9 BUN 7 Creatinine 0.5 L Creat Clearance w eGFR > 60 Random Glucose 111 H Lactic Acid Calcium 7.4 L Total Bilirubin 1.0 D AST 15 ALT < 6 L Alkaline Phosphatase 136 H Creatine Kinase Troponin I Total Protein 5.3 L Albumin 2.2 L Urine Color Urine Appearance Urine pH Ur Specific [place] Urine Protein Urine Glucose (UA) Urine Ketones Urine Blood Urine Nitrite Urine Bilirubin Urine Urobilinogen Ur Leukocyte Esterase Urine WBC (Auto) Urine RBC (Auto) Ur Epithelial Cells Hyaline Casts Urine Mucus Atrial fibrillation with nonspecific ST-T abnormality Imaging - Results Chest X-ray: Report Reviewed (Cardiomegaly, congestion) EKG: Report Reviewed Problem List - Problems (1) Afib Code(s): I48.91 - UNSPECIFIED ATRIAL FIBRILLATION Qualifiers: Atrial fibrillation type: permanent Qualified Code(s): I48.2 - Chronic atrial fibrillation (2) CHF (congestive heart failure) Code(s): I50.9 - HEART FAILURE, UNSPECIFIED Qualifiers: Heart failure type: diastolic Heart failure chronicity: acute on chronic Qualified Code(s): I50.33 - Acute on chronic diastolic (congestive) heart failure (3) COPD (chronic obstructive pulmonary disease) Code(s): J44.9 - CHRONIC OBSTRUCTIVE PULMONARY DISEASE, UNSPECIFIED Qualifiers: COPD type: unspecified COPD Qualified Code(s): J44.9 - Chronic obstructive pulmonary disease, unspecified (4) HTN (hypertension) Code(s): I10 - ESSENTIAL (PRIMARY) HYPERTENSION Qualifiers: Hypertension type: essential hypertension Qualified Code(s): I10 - Essential (primary) hypertension (5) Rheumatoid arthritis Code(s): M06.9 - RHEUMATOID ARTHRITIS, UNSPECIFIED Qualifiers: Rheumatoid arthritis location: unspecified site Assessment/Plan 1. Shortness of breath with cardiomegaly and congestion 2. Persistent AF 3. HTN 4. COPD 5. Rheumatoid arthritis PLAN: 1. Agree with Eliquis 5 mg BID as tolerated 2. Consider beta blanka therapy as tolerated instead of Digoxin 3. Transthoracic echocardiography to assess LV/RV and valvular function 4. Diuretics 5. Monitor electrolytes 6. Antibiotic coverage Further plans are to follow Nelson Calle MD
[2017-12-30] MEDS ORDERED: PT OWN MED DRAWER 7, Y5N ONE ×4 (14:47→20:55)
[2017-12-30] MEDS: ALBUTEROL SO4 2.5/IPRATROPIUM 0.5 INH SOL 3 ML VIAL.NEB. NEB SCH ×2 (15:55→20:53)
--- NOTE | 2017-12-30 16:50 | PN ---
Progress Note, Physician History of Present Illness: comfortable - Current Medication List Current Medications: Active Medications Albuterol/Ipratropium (Duoneb -) 1 amp NEB RQID [facility] Last Admin: 12/30/17 15:55 Dose: 1 amp Apixaban (Eliquis -) 5 mg PO BID [facility] Last Admin: 12/30/17 09:29 Dose: 5 mg Carbidopa/Levodopa (Sinemet 25/100 -) 1 each PO TID [facility] Last Admin: 12/30/17 16:25 Dose: Not Given Digoxin (Lanoxin -) 0.125 mg PO DAILY [facility] Last Admin: 12/30/17 09:29 Dose: 0.125 mg Folic Acid (Folic Acid -) 1 mg PO DAILY [facility] Last Admin: 12/30/17 09:29 Dose: 1 mg Furosemide (Lasix Injection -) 40 mg IVPUSH DAILY [facility] Last Admin: 12/30/17 09:30 Dose: 40 mg Piperacillin Sod/Tazobactam (Sod 3.375 gm/ Dextrose) 50 mls @ 100 mls/hr IVPB Q8H-IV [facility]; Protocol Last Admin: 12/30/17 09:29 Dose: 100 mls/hr Levothyroxine Sodium (Synthroid -) 88 mcg PO DAILY@0700 [facility] Last Admin: 12/30/17 06:53 Dose: 88 mcg Methotrexate (Mexate -) 2.5 mg PO Blunt@1000 [facility] Metoprolol Tartrate (Lopressor -) 50 mg PO BID [facility] Last Admin: 12/30/17 09:29 Dose: 50 mg - Objective Vital Signs: Vital Signs Temperature 98.7 F 12/30/17 14:00 Pulse Rate 94 H 12/30/17 14:00 Respiratory Rate 20 12/30/17 14:00 Blood Pressure 124/63 12/30/17 14:00 O2 Sat by Pulse Oximetry (%) 97 12/30/17 14:00 Constitutional: Yes: No Distress HENT: Yes: Atraumatic Neck: Yes: Supple Cardiovascular: Yes: Regular Rate and Rhythm Respiratory: Yes: Rhonchi Gastrointestinal: Yes: Normal Bowel Sounds Extremities: Yes: WNL Neurological: Yes: Alert, Oriented Labs: CBC, BMP 12/30/17 06:20 12/30/17 06:20 INR, PTT INR 1.95 (0.82-1.09) H 12/29/17 16:19 Problem List - Problems (1) Right middle lobe pneumonia Assessment/Plan: on iv abx cxs sent id on board Code(s): J18.1 - LOBAR PNEUMONIA, UNSPECIFIED ORGANISM Qualifiers: Pneumonia type: due to unspecified organism Qualified Code(s): J18.1 - Lobar pneumonia, unspecified organism (2) HTN (hypertension) Assessment/Plan: on meds stable Code(s): I10 - ESSENTIAL (PRIMARY) HYPERTENSION Qualifiers: Hypertension type: essential hypertension Qualified Code(s): I10 - Essential (primary) hypertension (3) CHF (congestive heart failure) Code(s): I50.9 - HEART FAILURE, UNSPECIFIED Qualifiers: Heart failure type: diastolic Heart failure chronicity: acute on chronic Qualified Code(s): I50.33 - Acute on chronic diastolic (congestive) heart failure (4) COPD (chronic obstructive pulmonary disease) Assessment/Plan: duo nebs prn Code(s): J44.9 - CHRONIC OBSTRUCTIVE PULMONARY DISEASE, UNSPECIFIED Qualifiers: COPD type: unspecified COPD Qualified Code(s): J44.9 - Chronic obstructive pulmonary disease, unspecified (5) Afib Code(s): I48.91 - UNSPECIFIED ATRIAL FIBRILLATION Qualifiers: Atrial fibrillation type: permanent Qualified Code(s): I48.2 - Chronic atrial fibrillation
[2017-12-30] MEDS ORDERED: PIPERACILLIN/TAZOBACTAM 3.375 GM VIAL IVPB ONE (17:02)
[2017-12-30] MEDS ORDERED: DEXTROSE 5%-WATER - 50 ML IVPB ONE (17:02)
--- NOTE | 2017-12-30 17:03 | PN ---
Progress Note, Physician History of Present Illness: slightly better still with sob - Current Medication List Current Medications: Active Medications Albuterol/Ipratropium (Duoneb -) 1 amp NEB RQID [facility] Last Admin: 12/30/17 15:55 Dose: 1 amp Apixaban (Eliquis -) 5 mg PO BID [facility] Last Admin: 12/30/17 09:29 Dose: 5 mg Carbidopa/Levodopa (Sinemet 25/100 -) 1 each PO TID [facility] Last Admin: 12/30/17 16:25 Dose: Not Given Digoxin (Lanoxin -) 0.125 mg PO DAILY [facility] Last Admin: 12/30/17 09:29 Dose: 0.125 mg Folic Acid (Folic Acid -) 1 mg PO DAILY [facility] Last Admin: 12/30/17 09:29 Dose: 1 mg Furosemide (Lasix Injection -) 40 mg IVPUSH DAILY [facility] Last Admin: 12/30/17 09:30 Dose: 40 mg Piperacillin Sod/Tazobactam (Sod 3.375 gm/ Dextrose) 50 mls @ 100 mls/hr IVPB Q8H-IV [facility]; Protocol Last Admin: 12/30/17 09:29 Dose: 100 mls/hr Levothyroxine Sodium (Synthroid -) 88 mcg PO DAILY@0700 [facility] Last Admin: 12/30/17 06:53 Dose: 88 mcg Methotrexate (Mexate -) 2.5 mg PO Blunt@1000 [facility] Metoprolol Tartrate (Lopressor -) 50 mg PO BID [facility] Last Admin: 12/30/17 09:29 Dose: 50 mg - Objective Vital Signs: Vital Signs Temperature 98.7 F 12/30/17 14:00 Pulse Rate 94 H 12/30/17 14:00 Respiratory Rate 20 12/30/17 14:00 Blood Pressure 124/63 12/30/17 14:00 O2 Sat by Pulse Oximetry (%) 97 12/30/17 14:00 Constitutional: Yes: Calm Cardiovascular: Yes: Pulse Irregular Respiratory: Yes: Regular, Poor Air Entry, Rhonchi Gastrointestinal: Yes: Normal Bowel Sounds, Soft Musculoskeletal: Yes: WNL Extremities: Yes: WNL Neurological: Yes: Alert Psychiatric: Yes: Alert Labs: CBC, BMP 12/30/17 06:20 12/30/17 06:20 INR, PTT INR 1.95 (0.82-1.09) H 12/29/17 16:19 Assessment/Plan Problem List - Problems (1) Afib Code(s): I48.91 - UNSPECIFIED ATRIAL FIBRILLATION Qualifiers: Atrial fibrillation type: permanent Qualified Code(s): I48.2 - Chronic atrial fibrillation (2) CHF (congestive heart failure) Code(s): I50.9 - HEART FAILURE, UNSPECIFIED Qualifiers: Heart failure type: diastolic Heart failure chronicity: acute on chronic Qualified Code(s): I50.33 - Acute on chronic diastolic (congestive) heart failure (3) COPD (chronic obstructive pulmonary disease) Code(s): J44.9 - CHRONIC OBSTRUCTIVE PULMONARY DISEASE, UNSPECIFIED Qualifiers: COPD type: unspecified COPD Qualified Code(s): J44.9 - Chronic obstructive pulmonary disease, unspecified (4) HTN (hypertension) Code(s): I10 - ESSENTIAL (PRIMARY) HYPERTENSION Qualifiers: Hypertension type: essential hypertension Qualified Code(s): I10 - Essential (primary) hypertension (5) Rheumatoid arthritis Code(s): M06.9 - RHEUMATOID ARTHRITIS, UNSPECIFIED Qualifiers: Rheumatoid arthritis location: unspecified site 6 pneumonia plan will start patient on abx cardio on case rest ct as per the team continue to monitor the patient
[2017-12-31] MEDS ORDERED: PIPERACILLIN/TAZOBACTAM 3.375 GM VIAL IVPB ONE ×3 (01:07→17:01)
[2017-12-31] MEDS ORDERED: DEXTROSE 5%-WATER - 50 ML IVPB ONE ×3 (01:07→17:02)
[2017-12-31] MEDS: PIPERACILLIN/TAZOB 3.375 GM 3.375 GM in DEXTROSE 5%-WATER - 50 ML IVPB SCH ×3 (01:34→17:27)
[2017-12-31] MEDS ORDERED: PT OWN MED DRAWER 7, Y5N ONE ×3 (05:12→20:51)
[2017-12-31] MEDS: CARBIDOPA/LEVODOPA 25/100 TABLET (FP) PO SCH ×3 (05:47→21:55)
[2017-12-31] MEDS: LEVOTHYROXINE NA 88 MCG TABLET (FP) PO SCH (06:06)
[2017-12-31] MEDS: ALBUTEROL SO4 2.5/IPRATROPIUM 0.5 INH SOL 3 ML VIAL.NEB. NEB SCH ×4 (08:00→20:39)
[2017-12-31] MEDS: FUROSEMIDE 40 MG/4 ML INJECTABLE VIAL IVPUSH SCH (09:34)
[2017-12-31] MEDS: APIXABAN 5 MG TABLET PO SCH ×2 (09:34→21:55)
[2017-12-31] MEDS: FOLIC ACID 1 MG TABLET (FP) PO SCH (09:34)
[2017-12-31] MEDS: DIGOXIN 0.125 MG TABLET (FP) PO SCH (09:34)
[2017-12-31] MEDS: METOPROLOL TARTRATE 50 MG TABLET (FP) PO SCH ×2 (09:34→21:55)
--- NOTE | 2017-12-31 10:09 | PN ---
Progress Note, Physician History of Present Illness: Confused, no complaints. - Current Medication List Current Medications: Active Medications Albuterol/Ipratropium (Duoneb -) 1 amp NEB RQID [facility] Last Admin: 12/31/17 08:00 Dose: 1 amp Apixaban (Eliquis -) 5 mg PO BID [facility] Last Admin: 12/31/17 09:34 Dose: 5 mg Carbidopa/Levodopa (Sinemet 25/100 -) 1 each PO TID [facility] Last Admin: 12/31/17 05:47 Dose: 1 each Digoxin (Lanoxin -) 0.125 mg PO DAILY [facility] Last Admin: 12/31/17 09:34 Dose: 0.125 mg Folic Acid (Folic Acid -) 1 mg PO DAILY [facility] Last Admin: 12/31/17 09:34 Dose: 1 mg Furosemide (Lasix Injection -) 40 mg IVPUSH DAILY [facility] Last Admin: 12/31/17 09:34 Dose: 40 mg Piperacillin Sod/Tazobactam (Sod 3.375 gm/ Dextrose) 50 mls @ 100 mls/hr IVPB Q8H-IV [facility]; Protocol Last Admin: 12/31/17 09:34 Dose: 100 mls/hr Levothyroxine Sodium (Synthroid -) 88 mcg PO DAILY@0700 [facility] Last Admin: 12/31/17 06:06 Dose: 88 mcg Methotrexate (Mexate -) 2.5 mg PO Blunt@1000 [facility] Metoprolol Tartrate (Lopressor -) 50 mg PO BID [facility] Last Admin: 12/31/17 09:34 Dose: 50 mg - Objective Vital Signs: Vital Signs Temperature 98.2 F 12/31/17 06:00 Pulse Rate 69 12/31/17 09:34 Respiratory Rate 20 12/31/17 08:35 Blood Pressure 119/70 12/31/17 06:00 O2 Sat by Pulse Oximetry (%) 95 12/31/17 08:35 Constitutional: Yes: No Distress, Calm, Thin Neck: Yes: Supple Cardiovascular: Yes: Pulse Irregular Respiratory: Yes: Regular, Diminished Gastrointestinal: Yes: Normal Bowel Sounds, Soft Edema: No Labs: CBC, BMP 12/30/17 06:20 12/30/17 06:20 INR, PTT INR 1.95 (0.82-1.09) H 12/29/17 16:19 - ....Imaging Chest X-ray: Report Reviewed (Mild congestion, bilateral effusion) EKG: Report Reviewed (Tele: Afib) Problem List - Problems (1) Afib Code(s): I48.91 - UNSPECIFIED ATRIAL FIBRILLATION Qualifiers: Atrial fibrillation type: permanent Qualified Code(s): I48.2 - Chronic atrial fibrillation (2) CHF (congestive heart failure) Code(s): I50.9 - HEART FAILURE, UNSPECIFIED Qualifiers: Heart failure type: diastolic Heart failure chronicity: acute on chronic Qualified Code(s): I50.33 - Acute on chronic diastolic (congestive) heart failure (3) HTN (hypertension) Code(s): I10 - ESSENTIAL (PRIMARY) HYPERTENSION Qualifiers: Hypertension type: essential hypertension Qualified Code(s): I10 - Essential (primary) hypertension (4) Rheumatoid arthritis Code(s): M06.9 - RHEUMATOID ARTHRITIS, UNSPECIFIED Qualifiers: Rheumatoid arthritis location: unspecified site Assessment/Plan 1. Shortness of breath referable to acute on chronic diastolic failure with pleural effusions 2. Persistent AF 3. HTN 4. COPD 5. Rheumatoid arthritis 6. Hypothyroidism PLAN: 1. Agree with Eliquis 5 mg BID as tolerated 2. Continue Lopressor 50 bid, d/c digoxin 3. F/u Transthoracic echocardiography to assess LV/RV and valvular function 4. IV diuresis with monitor diuretic response, renal fxn and electrolytes 6. Empiric Antibiotic coverage
[2017-12-31] MEDS ORDERED: FUROSEMIDE 40 MG/4 ML INJECTABLE VIAL IVPUSH ONE (14:00)
--- NOTE | 2017-12-31 15:52 | PN ---
Progress Note, Physician History of Present Illness: stable continues to be confused - Current Medication List Current Medications: Active Medications Albuterol/Ipratropium (Duoneb -) 1 amp NEB RQID REPLACED BY [facility] Last Admin: 12/31/17 12:00 Dose: 1 amp Apixaban (Eliquis -) 5 mg PO BID [facility] Last Admin: 12/31/17 09:34 Dose: 5 mg Carbidopa/Levodopa (Sinemet 25/100 -) 1 each PO TID [facility] Last Admin: 12/31/17 13:34 Dose: 1 each Folic Acid (Folic Acid -) 1 mg PO DAILY [facility] Last Admin: 12/31/17 09:34 Dose: 1 mg Furosemide (Lasix Injection -) 40 mg IVPUSH DAILY [facility] Last Admin: 12/31/17 09:34 Dose: 40 mg Piperacillin Sod/Tazobactam (Sod 3.375 gm/ Dextrose) 50 mls @ 100 mls/hr IVPB Q8H-IV [facility]PLACED BY [facility]; Protocol Last Admin: 12/31/17 09:34 Dose: 100 mls/hr Levothyroxine Sodium (Synthroid -) 88 mcg PO DAILY@0700 REPLACED BY [facility] Last Admin: 12/31/17 06:06 Dose: 88 mcg Methotrexate (Mexate -) 2.5 mg PO Blunt@1000 REPLACED BY [facility] Metoprolol Tartrate (Lopressor -) 50 mg PO BID REPLACED BY [facility] Last Admin: 12/31/17 09:34 Dose: 50 mg - Objective Vital Signs: Vital Signs Temperature 98.5 F 12/31/17 14:45 Pulse Rate 113 H 12/31/17 14:45 Respiratory Rate 20 12/31/17 14:45 Blood Pressure 123/72 12/31/17 14:45 O2 Sat by Pulse Oximetry (%) 95 12/31/17 08:35 Constitutional: Yes: Calm Cardiovascular: Yes: Pulse Irregular, S1, S2 Respiratory: Yes: Regular, On Nasal O2, Poor Air Entry Gastrointestinal: Yes: Normal Bowel Sounds, Soft Musculoskeletal: Yes: WNL Extremities: Yes: WNL Neurological: Yes: Alert, Confusion Labs: CBC, BMP 12/30/17 06:20 12/30/17 06:20 INR, PTT INR 1.95 (0.82-1.09) H 12/29/17 16:19 Assessment/Plan Problem List - Problems (1) Afib Code(s): I48.91 - UNSPECIFIED ATRIAL FIBRILLATION Qualifiers: Atrial fibrillation type: permanent Qualified Code(s): I48.2 - Chronic atrial fibrillation (2) CHF (congestive heart failure) Code(s): I50.9 - HEART FAILURE, UNSPECIFIED Qualifiers: Heart failure type: diastolic Heart failure chronicity: acute on chronic Qualified Code(s): I50.33 - Acute on chronic diastolic (congestive) heart failure (3) COPD (chronic obstructive pulmonary disease) Code(s): J44.9 - CHRONIC OBSTRUCTIVE PULMONARY DISEASE, UNSPECIFIED Qualifiers: COPD type: unspecified COPD Qualified Code(s): J44.9 - Chronic obstructive pulmonary disease, unspecified (4) HTN (hypertension) Code(s): I10 - ESSENTIAL (PRIMARY) HYPERTENSION Qualifiers: Hypertension type: essential hypertension Qualified Code(s): I10 - Essential (primary) hypertension (5) Rheumatoid arthritis Code(s): M06.9 - RHEUMATOID ARTHRITIS, UNSPECIFIED Qualifiers: Rheumatoid arthritis location: unspecified site 6 pneumonia 7 uti plan continue abx urine cx noted cardio on case rest ct as per the team continue to monitor the patient
--- NOTE | 2017-12-31 18:51 | PN ---
Progress Note, Physician History of Present Illness: comfortable - Current Medication List Current Medications: Active Medications Albuterol/Ipratropium (Duoneb -) 1 amp NEB RQID [facility] Last Admin: 12/31/17 16:40 Dose: 1 amp Apixaban (Eliquis -) 5 mg PO BID [facility] Last Admin: 12/31/17 09:34 Dose: 5 mg Carbidopa/Levodopa (Sinemet 25/100 -) 1 each PO TID [facility] Last Admin: 12/31/17 13:34 Dose: 1 each Folic Acid (Folic Acid -) 1 mg PO DAILY [facility] Last Admin: 12/31/17 09:34 Dose: 1 mg Furosemide (Lasix Injection -) 40 mg IVPUSH DAILY [facility] Last Admin: 12/31/17 09:34 Dose: 40 mg Piperacillin Sod/Tazobactam (Sod 3.375 gm/ Dextrose) 50 mls @ 100 mls/hr IVPB Q8H-IV [facility]; Protocol Last Admin: 12/31/17 17:27 Dose: 100 mls/hr Levothyroxine Sodium (Synthroid -) 88 mcg PO DAILY@0700 [facility] Last Admin: 12/31/17 06:06 Dose: 88 mcg Methotrexate (Mexate -) 2.5 mg PO Blunt@1000 [facility] Metoprolol Tartrate (Lopressor -) 50 mg PO BID [facility] Last Admin: 12/31/17 09:34 Dose: 50 mg - Objective Vital Signs: Vital Signs Temperature 98.5 F 12/31/17 14:45 Pulse Rate 113 H 12/31/17 14:45 Respiratory Rate 20 12/31/17 14:45 Blood Pressure 123/72 12/31/17 14:45 O2 Sat by Pulse Oximetry (%) 95 12/31/17 08:35 Constitutional: Yes: No Distress HENT: Yes: Atraumatic Neck: Yes: Supple Cardiovascular: Yes: Regular Rate and Rhythm Respiratory: Yes: Rhonchi Gastrointestinal: Yes: Normal Bowel Sounds Extremities: Yes: WNL Neurological: Yes: Alert, Oriented Labs: CBC, BMP 12/30/17 06:20 12/30/17 06:20 INR, PTT INR 1.95 (0.82-1.09) H 12/29/17 16:19 Problem List - Problems (1) Right middle lobe pneumonia Assessment/Plan: on iv abx cxs sent id on board Code(s): J18.1 - LOBAR PNEUMONIA, UNSPECIFIED ORGANISM Qualifiers: Pneumonia type: due to unspecified organism Qualified Code(s): J18.1 - Lobar pneumonia, unspecified organism (2) HTN (hypertension) Assessment/Plan: on meds stable Code(s): I10 - ESSENTIAL (PRIMARY) HYPERTENSION Qualifiers: Hypertension type: essential hypertension Qualified Code(s): I10 - Essential (primary) hypertension (3) CHF (congestive heart failure) Code(s): I50.9 - HEART FAILURE, UNSPECIFIED Qualifiers: Heart failure type: diastolic Heart failure chronicity: acute on chronic Qualified Code(s): I50.33 - Acute on chronic diastolic (congestive) heart failure (4) COPD (chronic obstructive pulmonary disease) Assessment/Plan: [facility] prn Code(s): J44.9 - CHRONIC OBSTRUCTIVE PULMONARY DISEASE, UNSPECIFIED Qualifiers: COPD type: unspecified COPD Qualified Code(s): J44.9 - Chronic obstructive pulmonary disease, unspecified (5) Afib Code(s): I48.91 - UNSPECIFIED ATRIAL FIBRILLATION Qualifiers: Atrial fibrillation type: permanent Qualified Code(s): I48.2 - Chronic atrial fibrillation (6) Hypothyroid Code(s): E03.9 - HYPOTHYROIDISM, UNSPECIFIED Qualifiers: Hypothyroidism type: unspecified Qualified Code(s): E03.9 - Hypothyroidism , unspecified
[2017-12-31] MEDS: guaiFENesin/D-METHORPHAN HB 10 ML UNIT-DOSE CUPS PO PRN (22:12)
[2018-01-01] MEDS ORDERED: PIPERACILLIN/TAZOBACTAM 3.375 GM VIAL IVPB ONE ×3 (01:55→17:22)
[2018-01-01] MEDS ORDERED: DEXTROSE 5%-WATER - 50 ML IVPB ONE ×3 (01:55→17:23)
[2018-01-01] MEDS: PIPERACILLIN/TAZOB 3.375 GM 3.375 GM in DEXTROSE 5%-WATER - 50 ML IVPB SCH ×3 (02:14→17:31)
[2018-01-01] MEDS: CARBIDOPA/LEVODOPA 25/100 TABLET (FP) PO SCH ×3 (07:10→21:43)
[2018-01-01] MEDS: LEVOTHYROXINE NA 88 MCG TABLET (FP) PO SCH (07:10)
[2018-01-01] MEDS: guaiFENesin/D-METHORPHAN HB 10 ML UNIT-DOSE CUPS PO PRN (07:18)
[2018-01-01] MEDS: ALBUTEROL SO4 2.5/IPRATROPIUM 0.5 INH SOL 3 ML VIAL.NEB. NEB SCH ×4 (08:35→20:19)
[2018-01-01 08:57] LABS: BASO % 1.1 % (0-2.0); EOS % 1.6 % (0-4.5); HEMATOCRIT 35.4 % (32.4-45.2); HEMOGLOBIN 11.9 GM/dL (10.7-15.3); LYMPH % 28.7 % (8-40); MCHC 33.6 g/dl (32.0-36.0); MEAN CELL VOLUME 98.1 fl (80-96); MEAN PLT VOLUME 8.5 fl (7.5-11.1); MONO % 13.5 % (3.8-10.2); NEUT % 55.1 % (42.8-82.8); PLATELET COUNT 362 K/MM3 (134-434); RBC 3.61 M/mm3 (3.60-5.2); RDW 15.6 % (11.6-15.6); WHITE BLOOD COUNT 10.2 K/mm3 (4.0-10.0)
--- NOTE | 2018-01-01 10:47 | PN ---
Progress Note, Physician History of Present Illness: Pt seen and examined. Events noted. Currently on O2 NC, denies shortness of breath. Remains afebrile. - Current Medication List Current Medications: Active Medications Albuterol/Ipratropium (Duoneb -) 1 amp NEB RQID [facility] Last Admin: 12/31/17 20:39 Dose: 1 amp Apixaban (Eliquis -) 5 mg PO BID [facility] Last Admin: 12/31/17 21:55 Dose: 5 mg Carbidopa/Levodopa (Sinemet 25/100 -) 1 each PO TID [facility] Last Admin: 01/01/18 07:10 Dose: 1 each Folic Acid (Folic Acid -) 1 mg PO DAILY [facility] Last Admin: 12/31/17 09:34 Dose: 1 mg Furosemide (Lasix Injection -) 40 mg IVPUSH DAILY [facility] Last Admin: 12/31/17 09:34 Dose: 40 mg Guaifenesin (Robitussin Dm -) 10 ml PO Q6H PRN PRN Reason: COUGH Last Admin: 01/01/18 07:18 Dose: 10 ml Piperacillin Sod/Tazobactam (Sod 3.375 gm/ Dextrose) 50 mls @ 100 mls/hr IVPB Q8H-IV [facility]; Protocol Last Admin: 01/01/18 02:14 Dose: 100 mls/hr Levothyroxine Sodium (Synthroid -) 88 mcg PO DAILY@0700 [facility] Last Admin: 01/01/18 07:10 Dose: 88 mcg Methotrexate (Mexate -) 2.5 mg PO Blunt@1000 [facility] Metoprolol Tartrate (Lopressor -) 50 mg PO BID [facility] Last Admin: 12/31/17 21:55 Dose: 50 mg - Objective Vital Signs: Vital Signs Temperature 98.2 F 01/01/18 06:40 Pulse Rate 94 H 01/01/18 06:40 Respiratory Rate 16 01/01/18 06:40 Blood Pressure 120/73 01/01/18 06:40 O2 Sat by Pulse Oximetry (%) 95 12/31/17 21:00 Constitutional: Yes: No Distress, Calm Cardiovascular: Yes: Pulse Irregular Respiratory: Yes: Diminished (Decrease BS in Rt base) Gastrointestinal: Yes: Normal Bowel Sounds, Soft Neurological: Yes: Alert Labs: CBC, BMP 01/01/18 08:30 12/30/17 06:20 INR, PTT INR 1.95 (0.82-1.09) H 12/29/17 16:19 Problem List - Problems (1) Afib Code(s): I48.91 - UNSPECIFIED ATRIAL FIBRILLATION Qualifiers: Atrial fibrillation type: permanent Qualified Code(s): I48.2 - Chronic atrial fibrillation (2) CHF (congestive heart failure) Code(s): I50.9 - HEART FAILURE, UNSPECIFIED Qualifiers: Heart failure type: diastolic Heart failure chronicity: acute on chronic Qualified Code(s): I50.33 - Acute on chronic diastolic (congestive) heart failure (3) COPD (chronic obstructive pulmonary disease) Code(s): J44.9 - CHRONIC OBSTRUCTIVE PULMONARY DISEASE, UNSPECIFIED Qualifiers: COPD type: unspecified COPD Qualified Code(s): J44.9 - Chronic obstructive pulmonary disease, unspecified (4) HTN (hypertension) Code(s): I10 - ESSENTIAL (PRIMARY) HYPERTENSION Qualifiers: Hypertension type: essential hypertension Qualified Code(s): I10 - Essential (primary) hypertension (5) Hypothyroid Code(s): E03.9 - HYPOTHYROIDISM, UNSPECIFIED (6) Rheumatoid arthritis Code(s): M06.9 - RHEUMATOID ARTHRITIS, UNSPECIFIED Qualifiers: Rheumatoid arthritis location: unspecified site Assessment/Plan PNA UTI -- leukocytosis resolved, afebrile -- continue current antibiotics for now -- on O2 NC continue monitor
[2018-01-01] MEDS: FUROSEMIDE 40 MG/4 ML INJECTABLE VIAL IVPUSH SCH (11:20)
[2018-01-01] MEDS: METOPROLOL TARTRATE 50 MG TABLET (FP) PO SCH ×3 (11:20→21:43)
[2018-01-01] MEDS: APIXABAN 5 MG TABLET PO SCH ×2 (11:20→21:43)
[2018-01-01] MEDS: FOLIC ACID 1 MG TABLET (FP) PO SCH (11:20)
--- NOTE | 2018-01-01 17:08 | PN ---
Progress Note, Physician History of Present Illness: Confused, no complaints. - Current Medication List Current Medications: Active Medications Albuterol/Ipratropium (Duoneb -) 1 amp NEB RQID [facility] Last Admin: 01/01/18 16:11 Dose: 1 amp Apixaban (Eliquis -) 5 mg PO BID [facility] Last Admin: 01/01/18 11:20 Dose: 5 mg Carbidopa/Levodopa (Sinemet 25/100 -) 1 each PO TID [facility] Last Admin: 01/01/18 07:10 Dose: 1 each Folic Acid (Folic Acid -) 1 mg PO DAILY [facility] Last Admin: 01/01/18 11:20 Dose: 1 mg Furosemide (Lasix Injection -) 40 mg IVPUSH DAILY [facility] Last Admin: 01/01/18 11:20 Dose: 40 mg Guaifenesin (Robitussin Dm -) 10 ml PO Q6H PRN PRN Reason: COUGH Last Admin: 01/01/18 07:18 Dose: 10 ml Piperacillin Sod/Tazobactam (Sod 3.375 gm/ Dextrose) 50 mls @ 100 mls/hr IVPB Q8H-IV [facility]; Protocol Last Admin: 01/01/18 11:19 Dose: 100 mls/hr Levothyroxine Sodium (Synthroid -) 88 mcg PO DAILY@0700 [facility] Last Admin: 01/01/18 07:10 Dose: 88 mcg Methotrexate (Mexate -) 2.5 mg PO Blunt@1000 [facility] Metoprolol Tartrate (Lopressor -) 50 mg PO BID [facility] Last Admin: 01/01/18 11:20 Dose: 50 mg - Objective Vital Signs: Vital Signs Temperature 98.7 F 01/01/18 13:25 Pulse Rate 103 H 01/01/18 13:25 Respiratory Rate 21 01/01/18 13:25 Blood Pressure 123/60 01/01/18 13:25 O2 Sat by Pulse Oximetry (%) 95 12/31/17 21:00 Constitutional: Yes: No Distress, Calm, Thin Neck: Yes: Supple Cardiovascular: Yes: Tachycardia, Pulse Irregular Respiratory: Yes: Regular, Diminished, On Nasal O2 Gastrointestinal: Yes: Normal Bowel Sounds, Soft Edema: No Labs: CBC, BMP 01/01/18 08:30 12/30/17 06:20 INR, PTT INR 1.95 (0.82-1.09) H 12/29/17 16:19 - ....Imaging EKG: Report Reviewed (Tele: Rapid afib) Problem List - Problems (1) Afib Code(s): I48.91 - UNSPECIFIED ATRIAL FIBRILLATION Qualifiers: Atrial fibrillation type: permanent Qualified Code(s): I48.2 - Chronic atrial fibrillation (2) CHF (congestive heart failure) Code(s): I50.9 - HEART FAILURE, UNSPECIFIED Qualifiers: Heart failure type: diastolic Heart failure chronicity: acute on chronic Qualified Code(s): I50.33 - Acute on chronic diastolic (congestive) heart failure (3) HTN (hypertension) Code(s): I10 - ESSENTIAL (PRIMARY) HYPERTENSION Qualifiers: Hypertension type: essential hypertension Qualified Code(s): I10 - Essential (primary) hypertension (4) Rheumatoid arthritis Code(s): M06.9 - RHEUMATOID ARTHRITIS, UNSPECIFIED Qualifiers: Rheumatoid arthritis location: unspecified site Assessment/Plan 1. Shortness of breath referable to acute on chronic diastolic failure with pleural effusions 2. Persistent AF 3. HTN 4. COPD 5. Rheumatoid arthritis 6. Hypothyroidism 7. PNA, UTI PLAN: 1. Agree with Eliquis 5 mg BID as tolerated 2. Increase Lopressor 50 tid 3. F/u Transthoracic echocardiography to assess LV/RV and valvular function 4. IV diuresis with monitor diuretic response, renal fxn and electrolytes 6. Empiric Antibiotic coverage
--- NOTE | 2018-01-01 17:40 | PN ---
Progress Note, Physician History of Present Illness: comfortable - Current Medication List Current Medications: Active Medications Albuterol/Ipratropium (Duoneb -) 1 amp NEB RQID [facility] Last Admin: 01/01/18 16:11 Dose: 1 amp Apixaban (Eliquis -) 5 mg PO BID [facility] Last Admin: 01/01/18 11:20 Dose: 5 mg Carbidopa/Levodopa (Sinemet 25/100 -) 1 each PO TID [facility] Last Admin: 01/01/18 17:26 Dose: Not Given Folic Acid (Folic Acid -) 1 mg PO DAILY [facility] Last Admin: 01/01/18 11:20 Dose: 1 mg Furosemide (Lasix Injection -) 40 mg IVPUSH DAILY [facility] Last Admin: 01/01/18 11:20 Dose: 40 mg Guaifenesin (Robitussin Dm -) 10 ml PO Q6H PRN PRN Reason: COUGH Last Admin: 01/01/18 07:18 Dose: 10 ml Piperacillin Sod/Tazobactam (Sod 3.375 gm/ Dextrose) 50 mls @ 100 mls/hr IVPB Q8H-IV [facility]; Protocol Last Admin: 01/01/18 17:31 Dose: 100 mls/hr Levothyroxine Sodium (Synthroid -) 88 mcg PO DAILY@0700 [facility] Last Admin: 01/01/18 07:10 Dose: 88 mcg Methotrexate (Mexate -) 2.5 mg PO Blunt@1000 [facility] Metoprolol Tartrate (Lopressor -) 50 mg PO TID [facility] - Objective Vital Signs: Vital Signs Temperature 98.7 F 01/01/18 13:25 Pulse Rate 103 H 01/01/18 13:25 Respiratory Rate 21 01/01/18 13:25 Blood Pressure 123/60 01/01/18 13:25 O2 Sat by Pulse Oximetry (%) 95 12/31/17 21:00 Constitutional: Yes: No Distress HENT: Yes: Atraumatic Neck: Yes: Supple Cardiovascular: Yes: Regular Rate and Rhythm Respiratory: Yes: Rhonchi Gastrointestinal: Yes: Normal Bowel Sounds Extremities: Yes: WNL Labs: CBC, BMP 01/01/18 08:30 12/30/17 06:20 INR, PTT INR 1.95 (0.82-1.09) H 12/29/17 16:19 Problem List - Problems (1) Right middle lobe pneumonia Assessment/Plan: on iv abx cxs noted id on board Code(s): J18.1 - LOBAR PNEUMONIA, UNSPECIFIED ORGANISM Qualifiers: Pneumonia type: due to unspecified organism Qualified Code(s): J18.1 - Lobar pneumonia, unspecified organism (2) HTN (hypertension) Assessment/Plan: on meds stable Code(s): I10 - ESSENTIAL (PRIMARY) HYPERTENSION Qualifiers: Hypertension type: essential hypertension Qualified Code(s): I10 - Essential (primary) hypertension (3) CHF (congestive heart failure) Code(s): I50.9 - HEART FAILURE, UNSPECIFIED Qualifiers: Heart failure type: diastolic Heart failure chronicity: acute on chronic Qualified Code(s): I50.33 - Acute on chronic diastolic (congestive) heart failure (4) COPD (chronic obstructive pulmonary disease) Assessment/Plan: duo nebs prn Code(s): J44.9 - CHRONIC OBSTRUCTIVE PULMONARY DISEASE, UNSPECIFIED Qualifiers: COPD type: unspecified COPD Qualified Code(s): J44.9 - Chronic obstructive pulmonary disease, unspecified (5) Afib Assessment/Plan: on eliquis and other meds Code(s): I48.91 - UNSPECIFIED ATRIAL FIBRILLATION Qualifiers: Atrial fibrillation type: permanent Qualified Code(s): I48.2 - Chronic atrial fibrillation (6) Hypothyroid Assessment/Plan: on meds stable Code(s): E03.9 - HYPOTHYROIDISM, UNSPECIFIED Qualifiers: Hypothyroidism type: unspecified Qualified Code(s): E03.9 - Hypothyroidism , unspecified
[2018-01-01] MEDS ORDERED: PT OWN MED DRAWER 7, Y5N ONE (21:42)
[2018-01-02] MEDS ORDERED: PIPERACILLIN/TAZOBACTAM 3.375 GM VIAL IVPB ONE ×3 (01:16→16:37)
[2018-01-02] MEDS ORDERED: DEXTROSE 5%-WATER - 50 ML IVPB ONE ×3 (01:17→16:37)
[2018-01-02] MEDS: PIPERACILLIN/TAZOB 3.375 GM 3.375 GM in DEXTROSE 5%-WATER - 50 ML IVPB SCH ×3 (01:18→17:50)
[2018-01-02] MEDS ORDERED: PT OWN MED DRAWER 7, Y5N ONE (05:47)
[2018-01-02] MEDS: METOPROLOL TARTRATE 50 MG TABLET (FP) PO SCH ×3 (06:02→21:05)
[2018-01-02] MEDS: CARBIDOPA/LEVODOPA 25/100 TABLET (FP) PO SCH ×3 (06:02→21:05)
[2018-01-02] MEDS: LEVOTHYROXINE NA 88 MCG TABLET (FP) PO SCH (06:02)
[2018-01-02] MEDS: ALBUTEROL SO4 2.5/IPRATROPIUM 0.5 INH SOL 3 ML VIAL.NEB. NEB SCH ×4 (08:07→20:06)
[2018-01-02] MEDS ORDERED: METHOTREXATE 2.5 MG TABLET PO SCH (10:00)
[2018-01-02] MEDS: FUROSEMIDE 40 MG/4 ML INJECTABLE VIAL IVPUSH SCH (11:32)
[2018-01-02] MEDS: FOLIC ACID 1 MG TABLET (FP) PO SCH (11:32)
[2018-01-02] MEDS: APIXABAN 5 MG TABLET PO SCH ×2 (11:32→21:05)
--- NOTE | 2018-01-02 12:34 | PN ---
Progress Note, Physician History of Present Illness: Pt is alert, without distress. Alert but weak. Oriented to person and time but not place. Follows directions. Denies shortness of breath. - Current Medication List Current Medications: Active Medications Acetaminophen (Tylenol -) 650 mg PO Q6H PRN PRN Reason: FEVER Albuterol/Ipratropium (Duoneb -) 1 amp NEB RQID [facility] Last Admin: 01/02/18 11:43 Dose: 1 amp Apixaban (Eliquis -) 5 mg PO BID [facility] Last Admin: 01/02/18 11:32 Dose: 5 mg Carbidopa/Levodopa (Sinemet 25/100 -) 1 each PO TID [facility] Last Admin: 01/02/18 06:02 Dose: 1 each Folic Acid (Folic Acid -) 1 mg PO DAILY [facility] Last Admin: 01/02/18 11:32 Dose: 1 mg Furosemide (Lasix Injection -) 40 mg IVPUSH DAILY [facility] Last Admin: 01/02/18 11:32 Dose: 40 mg Guaifenesin (Robitussin Dm -) 10 ml PO Q6H PRN PRN Reason: COUGH Last Admin: 01/01/18 07:18 Dose: 10 ml Piperacillin Sod/Tazobactam (Sod 3.375 gm/ Dextrose) 50 mls @ 100 mls/hr IVPB Q8H-IV [facility]; Protocol Last Admin: 01/02/18 11:32 Dose: 100 mls/hr Levothyroxine Sodium (Synthroid -) 88 mcg PO DAILY@0700 [facility] Last Admin: 01/02/18 06:02 Dose: 88 mcg Methotrexate (Mexate -) 2.5 mg PO Blunt@1000 [facility] Metoprolol Tartrate (Lopressor -) 50 mg PO TID [facility] Last Admin: 01/02/18 06:02 Dose: 50 mg - Objective Vital Signs: Vital Signs Temperature 98.6 F 01/02/18 07:15 Pulse Rate 100 H 01/02/18 07:15 Respiratory Rate 18 01/02/18 08:15 Blood Pressure 134/78 01/02/18 07:15 O2 Sat by Pulse Oximetry (%) 96 01/02/18 08:15 Constitutional: Yes: No Distress, Calm Neck: Yes: Supple Cardiovascular: Yes: Pulse Irregular Respiratory: Yes: On Nasal O2 Gastrointestinal: Yes: Normal Bowel Sounds, Soft Integumentary: Yes: WNL Neurological: Yes: Alert Labs: CBC, BMP 01/01/18 08:30 12/30/17 06:20 INR, PTT INR 1.95 (0.82-1.09) H 12/29/17 16:19 Problem List - Problems (1) Afib Code(s): I48.91 - UNSPECIFIED ATRIAL FIBRILLATION Qualifiers: Atrial fibrillation type: permanent Qualified Code(s): I48.2 - Chronic atrial fibrillation (2) CHF (congestive heart failure) Code(s): I50.9 - HEART FAILURE, UNSPECIFIED Qualifiers: Heart failure type: diastolic Heart failure chronicity: acute on chronic Qualified Code(s): I50.33 - Acute on chronic diastolic (congestive) heart failure (3) COPD (chronic obstructive pulmonary disease) Code(s): J44.9 - CHRONIC OBSTRUCTIVE PULMONARY DISEASE, UNSPECIFIED Qualifiers: COPD type: unspecified COPD Qualified Code(s): J44.9 - Chronic obstructive pulmonary disease, unspecified (4) HTN (hypertension) Code(s): I10 - ESSENTIAL (PRIMARY) HYPERTENSION Qualifiers: Hypertension type: essential hypertension Qualified Code(s): I10 - Essential (primary) hypertension (5) Hypothyroid Code(s): E03.9 - HYPOTHYROIDISM, UNSPECIFIED (6) Rheumatoid arthritis Code(s): M06.9 - RHEUMATOID ARTHRITIS, UNSPECIFIED Qualifiers: Rheumatoid arthritis location: unspecified site Assessment/Plan 7) PNA 8) UTI -- pt appears stable at this time -- continue antibiotics -- on O2 NC - no current respiratory distress continue monitor
--- NOTE | 2018-01-02 12:48 | PN ---
Progress Note, Physician History of Present Illness: Confused, no complaints. - Current Medication List Current Medications: Active Medications Acetaminophen (Tylenol -) 650 mg PO Q6H PRN PRN Reason: FEVER Albuterol/Ipratropium (Duoneb -) 1 amp NEB RQID [facility] Last Admin: 01/02/18 11:43 Dose: 1 amp Apixaban (Eliquis -) 5 mg PO BID [facility] Last Admin: 01/02/18 11:32 Dose: 5 mg Carbidopa/Levodopa (Sinemet 25/100 -) 1 each PO TID [facility] Last Admin: 01/02/18 06:02 Dose: 1 each Folic Acid (Folic Acid -) 1 mg PO DAILY [facility] Last Admin: 01/02/18 11:32 Dose: 1 mg Furosemide (Lasix Injection -) 40 mg IVPUSH DAILY [facility] Last Admin: 01/02/18 11:32 Dose: 40 mg Guaifenesin (Robitussin Dm -) 10 ml PO Q6H PRN PRN Reason: COUGH Last Admin: 01/01/18 07:18 Dose: 10 ml Piperacillin Sod/Tazobactam (Sod 3.375 gm/ Dextrose) 50 mls @ 100 mls/hr IVPB Q8H-IV [facility]; Protocol Last Admin: 01/02/18 11:32 Dose: 100 mls/hr Levothyroxine Sodium (Synthroid -) 88 mcg PO DAILY@0700 [facility] Last Admin: 01/02/18 06:02 Dose: 88 mcg Methotrexate (Mexate -) 2.5 mg PO Blunt@1000 [facility] Last Admin: 01/02/18 12:33 Dose: 2.5 mg Metoprolol Tartrate (Lopressor -) 50 mg PO TID [facility] Last Admin: 01/02/18 06:02 Dose: 50 mg - Objective Vital Signs: Vital Signs Temperature 98.6 F 01/02/18 07:15 Pulse Rate 100 H 01/02/18 07:15 Respiratory Rate 18 01/02/18 08:15 Blood Pressure 134/78 01/02/18 07:15 O2 Sat by Pulse Oximetry (%) 96 01/02/18 08:15 Constitutional: Yes: No Distress, Calm, Thin Neck: Yes: Supple Cardiovascular: Yes: Tachycardia, Pulse Irregular Respiratory: Yes: Regular, Diminished, On Nasal O2 Gastrointestinal: Yes: Normal Bowel Sounds, Soft Edema: No Labs: CBC, BMP 01/01/18 08:30 12/30/17 06:20 INR, PTT INR 1.95 (0.82-1.09) H 12/29/17 16:19 - ....Imaging EKG: Report Reviewed (Tele: Rate-controlled afib) Problem List - Problems (1) Afib Code(s): I48.91 - UNSPECIFIED ATRIAL FIBRILLATION Qualifiers: Atrial fibrillation type: permanent Qualified Code(s): I48.2 - Chronic atrial fibrillation (2) CHF (congestive heart failure) Code(s): I50.9 - HEART FAILURE, UNSPECIFIED Qualifiers: Heart failure type: diastolic Heart failure chronicity: acute on chronic Qualified Code(s): I50.33 - Acute on chronic diastolic (congestive) heart failure (3) HTN (hypertension) Code(s): I10 - ESSENTIAL (PRIMARY) HYPERTENSION Qualifiers: Hypertension type: essential hypertension Qualified Code(s): I10 - Essential (primary) hypertension (4) Rheumatoid arthritis Code(s): M06.9 - RHEUMATOID ARTHRITIS, UNSPECIFIED Qualifiers: Rheumatoid arthritis location: unspecified site (5) Hypothyroid Code(s): E03.9 - HYPOTHYROIDISM, UNSPECIFIED Qualifiers: Hypothyroidism type: unspecified Qualified Code(s): E03.9 - Hypothyroidism , unspecified (6) Right middle lobe pneumonia Code(s): J18.1 - LOBAR PNEUMONIA, UNSPECIFIED ORGANISM Qualifiers: Pneumonia type: due to unspecified organism Qualified Code(s): J18.1 - Lobar pneumonia, unspecified organism Assessment/Plan 1. Shortness of breath referable to acute on chronic diastolic failure with pleural effusions improving 2. Persistent AF 3. HTN 4. COPD 5. Rheumatoid arthritis 6. Hypothyroidism 7. PNA, UTI PLAN: 1. Continue with Eliquis 5 mg BID 2. Continue Lopressor 50 tid 3. F/u Transthoracic echocardiography to assess LV/RV and valvular function 4. Decrease IV diuresis with monitor diuretic response, renal fxn and electrolytes 6. Empiric Antibiotic coverage
--- NOTE | 2018-01-02 16:23 | PN ---
Progress Note, Physician History of Present Illness: comfortable - Current Medication List Current Medications: Active Medications Acetaminophen (Tylenol -) 650 mg PO Q6H PRN PRN Reason: FEVER Albuterol/Ipratropium (Duoneb -) 1 amp NEB RQID [facility] Last Admin: 01/02/18 11:43 Dose: 1 amp Apixaban (Eliquis -) 5 mg PO BID [facility] Last Admin: 01/02/18 11:32 Dose: 5 mg Carbidopa/Levodopa (Sinemet 25/100 -) 1 each PO TID [facility] Last Admin: 01/02/18 15:02 Dose: 1 each Folic Acid (Folic Acid -) 1 mg PO DAILY [facility] Last Admin: 01/02/18 11:32 Dose: 1 mg Furosemide (Lasix Injection -) 20 mg IVPUSH DAILY [facility] Guaifenesin (Robitussin Dm -) 10 ml PO Q6H PRN PRN Reason: COUGH Last Admin: 01/01/18 07:18 Dose: 10 ml Piperacillin Sod/Tazobactam (Sod 3.375 gm/ Dextrose) 50 mls @ 100 mls/hr IVPB Q8H-IV [facility]; Protocol Last Admin: 01/02/18 11:32 Dose: 100 mls/hr Levothyroxine Sodium (Synthroid -) 88 mcg PO DAILY@0700 [facility] Last Admin: 01/02/18 06:02 Dose: 88 mcg Methotrexate (Mexate -) 2.5 mg PO Blunt@1000 [facility] Last Admin: 01/02/18 12:33 Dose: 2.5 mg Metoprolol Tartrate (Lopressor -) 50 mg PO TID [facility] Last Admin: 01/02/18 15:05 Dose: 50 mg - Objective Vital Signs: Vital Signs Temperature 98 F 01/02/18 15:15 Pulse Rate 110 H 01/02/18 15:15 Respiratory Rate 20 01/02/18 15:15 Blood Pressure 144/56 01/02/18 15:15 O2 Sat by Pulse Oximetry (%) 96 01/02/18 08:15 Constitutional: Yes: No Distress HENT: Yes: Atraumatic Neck: Yes: Supple Cardiovascular: Yes: Regular Rate and Rhythm Respiratory: Yes: CTA Bilaterally, Rhonchi Gastrointestinal: Yes: Normal Bowel Sounds Extremities: Yes: WNL Edema: No Peripheral Pulses WNL: Yes Neurological: Yes: Alert, Oriented Labs: CBC, BMP 01/01/18 08:30 12/30/17 06:20 INR, PTT INR 1.95 (0.82-1.09) H 12/29/17 16:19 Problem List - Problems (1) Right middle lobe pneumonia Assessment/Plan: on iv abx cxs noted id on board Code(s): J18.1 - LOBAR PNEUMONIA, UNSPECIFIED ORGANISM Qualifiers: Pneumonia type: due to unspecified organism Qualified Code(s): J18.1 - Lobar pneumonia, unspecified organism (2) HTN (hypertension) Assessment/Plan: on meds stable Code(s): I10 - ESSENTIAL (PRIMARY) HYPERTENSION Qualifiers: Hypertension type: essential hypertension Qualified Code(s): I10 - Essential (primary) hypertension (3) CHF (congestive heart failure) Code(s): I50.9 - HEART FAILURE, UNSPECIFIED Qualifiers: Heart failure type: diastolic Heart failure chronicity: acute on chronic Qualified Code(s): I50.33 - Acute on chronic diastolic (congestive) heart failure (4) COPD (chronic obstructive pulmonary disease) Assessment/Plan: duo nebs prn Code(s): J44.9 - CHRONIC OBSTRUCTIVE PULMONARY DISEASE, UNSPECIFIED Qualifiers: COPD type: unspecified COPD Qualified Code(s): J44.9 - Chronic obstructive pulmonary disease, unspecified (5) Afib Code(s): I48.91 - UNSPECIFIED ATRIAL FIBRILLATION Qualifiers: Atrial fibrillation type: permanent Qualified Code(s): I48.2 - Chronic atrial fibrillation (6) Hypothyroid Code(s): E03.9 - HYPOTHYROIDISM, UNSPECIFIED Qualifiers: Hypothyroidism type: unspecified Qualified Code(s): E03.9 - Hypothyroidism , unspecified
[2018-01-02] MEDS: ACETAMINOPHEN 325 MG TABLET (FP) PO PRN (21:05)
[2018-01-03] MEDS ORDERED: DEXTROSE 5%-WATER - 50 ML IVPB ONE ×2 (01:10→11:59)
[2018-01-03] MEDS ORDERED: PIPERACILLIN/TAZOBACTAM 3.375 GM VIAL IVPB ONE ×2 (01:10→11:59)
[2018-01-03] MEDS: PIPERACILLIN/TAZOB 3.375 GM 3.375 GM in DEXTROSE 5%-WATER - 50 ML IVPB SCH ×3 (01:16→18:33)
[2018-01-03] MEDS ORDERED: PT OWN MED DRAWER 7, Y5N ONE ×3 (05:09→20:52)
[2018-01-03] MEDS: METOPROLOL TARTRATE 50 MG TABLET (FP) PO SCH ×4 (05:10→21:22)
[2018-01-03] MEDS: CARBIDOPA/LEVODOPA 25/100 TABLET (FP) PO SCH ×3 (05:10→21:11)
[2018-01-03] MEDS: LEVOTHYROXINE NA 88 MCG TABLET (FP) PO SCH (06:10)
--- NOTE | 2018-01-03 07:19 | PN ---
Progress Note (short form) - Note Progress Note: Chief Complaint: Events noted, notes reviewed, lethargic but arousable, no distress, remains confused History of Present Illness: Seen and examined on telemetry. Events noted, notes reviewed, lethargic but arousable, no distress, remains confused - Current Medication List Current Medications Acetaminophen (Tylenol -) 650 mg PO Q6H PRN PRN Reason: FEVER Last Admin: 01/02/18 21:05 Dose: 650 mg Albuterol/Ipratropium (Duoneb -) 1 amp NEB RQID [facility] Last Admin: 01/03/18 08:09 Dose: 1 amp Apixaban (Eliquis -) 5 mg PO BID [facility] Last Admin: 01/02/18 21:05 Dose: 5 mg Carbidopa/Levodopa (Sinemet 25/100 -) 1 each PO TID [facility] Last Admin: 01/03/18 05:10 Dose: 1 each Folic Acid (Folic Acid -) 1 mg PO DAILY [facility] Last Admin: 01/02/18 11:32 Dose: 1 mg Furosemide (Lasix Injection -) 20 mg IVPUSH DAILY [facility] Guaifenesin (Robitussin Dm -) 10 ml PO Q6H PRN PRN Reason: COUGH Last Admin: 01/01/18 07:18 Dose: 10 ml Piperacillin Sod/Tazobactam (Sod 3.375 gm/ Dextrose) 50 mls @ 100 mls/hr IVPB Q8H-IV [facility]; Protocol Last Admin: 01/03/18 01:16 Dose: 100 mls/hr Levothyroxine Sodium (Synthroid -) 88 mcg PO DAILY@0700 [facility] Last Admin: 01/03/18 06:10 Dose: 88 mcg Methotrexate (Mexate -) 2.5 mg PO Blunt@1000 [facility] Last Admin: 01/02/18 12:33 Dose: 2.5 mg Metoprolol Tartrate (Lopressor -) 50 mg PO TID [facility] Last Admin: 01/03/18 05:10 Dose: 50 mg Review of Systems Unable to obtain, lethargic - Objective Vital Signs: Last Vital Signs Temp Pulse Resp BP Pulse Ox 98.0 F 111 H 20 128/67 100 01/03/18 05:53 01/03/18 05:53 01/03/18 05:53 01/03/18 05:53 01/02/18 19:48 Intake & Output 12/31/17 01/01/18 01/02/18 01/03/18 23:59 23:59 23:59 23:59 Intake Total 100 320 150 Balance 100 320 150 Weight 183 lb 3 oz 180 lb 175 lb 2 oz 181 lb 6 oz Constitutional: No Distress, Calm, Thin Neck: Supple Cardiovascular: S1 S2 Irregularly Irregular Respiratory: Diminished Gastrointestinal: Soft Benign Normal Bowel Sounds Ext: No edema Labs: CBC, BMP 01/01/18 08:30 12/30/17 06:20 Assessment/Plan ASSESSMENT: 1. Acute on chronic class I-II NYHA classification diastolic LV failure with pleural effusions, resolving 2. CAD angina pectoris 3. Persistent atrial fibrillation [id number] score of 5 on DOAC's 4. HTN 5. Parkinson's disease 6. Hypothyroidism 7. COPD, with pneumonia, resolving 8. Rheumatoid arthritis PLAN: 1. Continue with A/C with Eliquis, close monitoring of CBC 2. Continue Lopressor 3. Recommend the addition of ACEI or ARBS unless it is contraindicated 4. Continue Lasix 5. Await Transthoracic echocardiography to assess LV/RV and valvular functions 6. Antibiotics as per primary team Chiqui Raphael MD
[2018-01-03] MEDS: ALBUTEROL SO4 2.5/IPRATROPIUM 0.5 INH SOL 3 ML VIAL.NEB. NEB SCH ×4 (08:09→20:13)
[2018-01-03] MEDS: FUROSEMIDE 40 MG/4 ML INJECTABLE VIAL IVPUSH SCH (12:08)
[2018-01-03] MEDS: FOLIC ACID 1 MG TABLET (FP) PO SCH (12:09)
[2018-01-03] MEDS: VALSARTAN 40 MG TABLET (FP) PO SCH (12:09)
[2018-01-03] MEDS: APIXABAN 5 MG TABLET PO SCH ×2 (12:09→21:11)
--- NOTE | 2018-01-03 12:47 | PN ---
Progress Note, Physician History of Present Illness: stable confusion better still requiring oxygen wbc trending down - Current Medication List Current Medications: Active Medications Acetaminophen (Tylenol -) 650 mg PO Q6H PRN PRN Reason: FEVER Last Admin: 01/02/18 21:05 Dose: 650 mg Albuterol/Ipratropium (Duoneb -) 1 amp NEB RQID [facility] Last Admin: 01/03/18 08:09 Dose: 1 amp Apixaban (Eliquis -) 5 mg PO BID [facility] [place] Last Admin: 01/03/18 12:09 Dose: 5 mg Carbidopa/Levodopa (Sinemet 25/100 -) 1 each PO TID [facility] [place] Last Admin: 01/03/18 05:10 Dose: 1 each Folic Acid (Folic Acid -) 1 mg PO DAILY [facility] Last Admin: 01/03/18 12:09 Dose: 1 mg Furosemide (Lasix Injection -) 20 mg IVPUSH DAILY [facility] [place] Last Admin: 01/03/18 12:08 Dose: 20 mg Guaifenesin (Robitussin Dm -) 10 ml PO Q6H PRN PRN Reason: COUGH Last Admin: 01/01/18 07:18 Dose: 10 ml Piperacillin Sod/Tazobactam (Sod 3.375 gm/ Dextrose) 50 mls @ 100 mls/hr IVPB Q8H-IV [facility]; Protocol Last Admin: 01/03/18 12:08 Dose: 100 mls/hr Levothyroxine Sodium (Synthroid -) 88 mcg PO DAILY@0700 [facility] [place] Last Admin: 01/03/18 06:10 Dose: 88 mcg Methotrexate (Mexate -) 2.5 mg PO Blunt@1000 [facility] [place] Last Admin: 01/02/18 12:33 Dose: 2.5 mg Metoprolol Tartrate (Lopressor -) 50 mg PO TID [facility] [place] Last Admin: 01/03/18 05:10 Dose: 50 mg Valsartan (Diovan -) 40 mg PO DAILY [facility] [place] Last Admin: 01/03/18 12:09 Dose: 40 mg - Objective Vital Signs: Vital Signs Temperature 98 F 01/03/18 11:30 Pulse Rate 110 H 01/03/18 11:30 Respiratory Rate 20 01/03/18 11:30 Blood Pressure 136/69 01/03/18 11:30 O2 Sat by Pulse Oximetry (%) 100 01/02/18 19:48 Constitutional: Yes: No Distress, Calm Cardiovascular: Yes: Regular Rate and Rhythm Respiratory: Yes: On Nasal O2, Poor Air Entry, Rales Gastrointestinal: Yes: Normal Bowel Sounds, Soft Musculoskeletal: Yes: WNL Extremities: Yes: WNL Neurological: Yes: Alert, Confusion Psychiatric: Yes: Other Labs: CBC, BMP 01/01/18 08:30 12/30/17 06:20 INR, PTT INR 1.95 (0.82-1.09) H 12/29/17 16:19 Assessment/Plan Problem List - Problems (1) Afib Code(s): I48.91 - UNSPECIFIED ATRIAL FIBRILLATION Qualifiers: Atrial fibrillation type: permanent Qualified Code(s): I48.2 - Chronic atrial fibrillation (2) CHF (congestive heart failure) Code(s): I50.9 - HEART FAILURE, UNSPECIFIED Qualifiers: Heart failure type: diastolic Heart failure chronicity: acute on chronic Qualified Code(s): I50.33 - Acute on chronic diastolic (congestive) heart failure (3) COPD (chronic obstructive pulmonary disease) Code(s): J44.9 - CHRONIC OBSTRUCTIVE PULMONARY DISEASE, UNSPECIFIED Qualifiers: COPD type: unspecified COPD Qualified Code(s): J44.9 - Chronic obstructive pulmonary disease, unspecified (4) HTN (hypertension) Code(s): I10 - ESSENTIAL (PRIMARY) HYPERTENSION Qualifiers: Hypertension type: essential hypertension Qualified Code(s): I10 - Essential (primary) hypertension (5) Rheumatoid arthritis Code(s): M06.9 - RHEUMATOID ARTHRITIS, UNSPECIFIED Qualifiers: Rheumatoid arthritis location: unspecified site 6 pneumonia 7 uti 8 sepsis plan continue abx patient with sepsis on admission urine cx noted cardio on case rest ct as per the team continue to monitor the patient
--- NOTE | 2018-01-03 20:57 | PN ---
Progress Note, Physician History of Present Illness: comfortable - Current Medication List Current Medications: Active Medications Acetaminophen (Tylenol -) 650 mg PO Q6H PRN PRN Reason: FEVER Last Admin: 01/02/18 21:05 Dose: 650 mg Albuterol/Ipratropium (Duoneb -) 1 amp NEB RQID [facility] Last Admin: 01/03/18 20:13 Dose: 1 amp Amoxicillin/Clavulanate Potassium (Augmentin - 875mg Tablet) 1 tab PO BID@0800, 1730 [facility] Apixaban (Eliquis -) 5 mg PO BID [facility] Last Admin: 01/03/18 12:09 Dose: 5 mg Carbidopa/Levodopa (Sinemet 25/100 -) 1 each PO TID [facility] Last Admin: 01/03/18 14:47 Dose: 1 each Folic Acid (Folic Acid -) 1 mg PO DAILY [facility] Last Admin: 01/03/18 12:09 Dose: 1 mg Furosemide (Lasix Injection -) 20 mg IVPUSH DAILY [facility] Last Admin: 01/03/18 12:08 Dose: 20 mg Guaifenesin (Robitussin Dm -) 10 ml PO Q6H PRN PRN Reason: COUGH Last Admin: 01/01/18 07:18 Dose: 10 ml Levothyroxine Sodium (Synthroid -) 88 mcg PO DAILY@0700 [facility] Last Admin: 01/03/18 06:10 Dose: 88 mcg Methotrexate (Mexate -) 2.5 mg PO Blunt@1000 [facility] Last Admin: 01/02/18 12:33 Dose: 2.5 mg Metoprolol Tartrate (Lopressor -) 50 mg PO TID [facility] Last Admin: 01/03/18 14:47 Dose: 50 mg Valsartan (Diovan -) 40 mg PO DAILY [facility] Last Admin: 01/03/18 12:09 Dose: 40 mg - Objective Vital Signs: Vital Signs Temperature 98 F 01/03/18 11:30 Pulse Rate 110 H 01/03/18 11:30 Respiratory Rate 20 01/03/18 11:30 Blood Pressure 136/69 01/03/18 11:30 O2 Sat by Pulse Oximetry (%) 96 01/03/18 09:00 Constitutional: Yes: No Distress HENT: Yes: Atraumatic Neck: Yes: Supple Cardiovascular: Yes: Regular Rate and Rhythm Respiratory: Yes: CTA Bilaterally Gastrointestinal: Yes: Normal Bowel Sounds Extremities: Yes: WNL Neurological: Yes: Alert, Oriented Labs: CBC, BMP 01/01/18 08:30 12/30/17 06:20 INR, PTT INR 1.95 (0.82-1.09) H 12/29/17 16:19 Problem List - Problems (1) Right middle lobe pneumonia Assessment/Plan: completed abx course Code(s): J18.1 - LOBAR PNEUMONIA, UNSPECIFIED ORGANISM Qualifiers: Pneumonia type: due to unspecified organism Qualified Code(s): J18.1 - Lobar pneumonia, unspecified organism (2) HTN (hypertension) Assessment/Plan: on meds stable Code(s): I10 - ESSENTIAL (PRIMARY) HYPERTENSION Qualifiers: Hypertension type: essential hypertension Qualified Code(s): I10 - Essential (primary) hypertension (3) CHF (congestive heart failure) Code(s): I50.9 - HEART FAILURE, UNSPECIFIED Qualifiers: Heart failure type: diastolic Heart failure chronicity: acute on chronic Qualified Code(s): I50.33 - Acute on chronic diastolic (congestive) heart failure (4) COPD (chronic obstructive pulmonary disease) Assessment/Plan: duo nebs prn Code(s): J44.9 - CHRONIC OBSTRUCTIVE PULMONARY DISEASE, UNSPECIFIED Qualifiers: COPD type: unspecified COPD Qualified Code(s): J44.9 - Chronic obstructive pulmonary disease, unspecified (5) Afib Assessment/Plan: on eliquis and other meds Code(s): I48.91 - UNSPECIFIED ATRIAL FIBRILLATION Qualifiers: Atrial fibrillation type: permanent Qualified Code(s): I48.2 - Chronic atrial fibrillation (6) Hypothyroid Assessment/Plan: on meds stable Code(s): E03.9 - HYPOTHYROIDISM, UNSPECIFIED Qualifiers: Hypothyroidism type: unspecified Qualified Code(s): E03.9 - Hypothyroidism , unspecified
[2018-01-04] MEDS ORDERED: PT OWN MED DRAWER 7, Y5N ONE ×3 (06:22→20:53)
[2018-01-04] MEDS: METOPROLOL TARTRATE 50 MG TABLET (FP) PO SCH ×3 (06:26→21:04)
[2018-01-04] MEDS: LEVOTHYROXINE NA 88 MCG TABLET (FP) PO SCH (06:27)
[2018-01-04] MEDS: CARBIDOPA/LEVODOPA 25/100 TABLET (FP) PO SCH ×3 (06:27→21:04)
[2018-01-04 07:20] LABS: HEMOGLOBIN 12.4 GM/dL (10.7-15.3); LYMPH % 21.6 % (8-40); MCHC 33.4 g/dl (32.0-36.0); MEAN CELL VOLUME 98.9 fl (80-96); MEAN PLT VOLUME 8.3 fl (7.5-11.1); MONO % 12.9 % (3.8-10.2); NEUT % 62.5 % (42.8-82.8); PLATELET COUNT 312 K/MM3 (134-434); RBC 3.74 M/mm3 (3.60-5.2); RDW 15.9 % (11.6-15.6); WHITE BLOOD COUNT 8.2 K/mm3 (4.0-10.0)
--- NOTE | 2018-01-04 07:23 | PN ---
Progress Note (short form) - Note Progress Note: Chief Complaint: Events noted, notes reviewed, awake and alert denies any chest pain or dyspnea History of Present Illness: Seen and examined on telemetry. Events noted, notes reviewed, awake and alert denies any chest pain or dyspnea Echocardiography revealed normal LV and RV size and function, trace to mild AI - Current Medication List Current Medications Acetaminophen (Tylenol -) 650 mg PO Q6H PRN PRN Reason: FEVER Last Admin: 01/02/18 21:05 Dose: 650 mg Albuterol/Ipratropium (Duoneb -) 1 amp NEB RQID [facility] Last Admin: 01/03/18 20:13 Dose: 1 amp Amoxicillin/Clavulanate Potassium (Augmentin - 875mg Tablet) 1 tab PO BID@0800, 1730 [facility] Apixaban (Eliquis -) 5 mg PO BID [facility] Last Admin: 01/03/18 21:11 Dose: 5 mg Carbidopa/Levodopa (Sinemet 25/100 -) 1 each PO TID [facility] Last Admin: 01/04/18 06:27 Dose: 1 each Folic Acid (Folic Acid -) 1 mg PO DAILY [facility] Last Admin: 01/03/18 12:09 Dose: 1 mg Furosemide (Lasix Injection -) 20 mg IVPUSH DAILY [facility] Last Admin: 01/03/18 12:08 Dose: 20 mg Guaifenesin (Robitussin Dm -) 10 ml PO Q6H PRN PRN Reason: COUGH Last Admin: 01/01/18 07:18 Dose: 10 ml Levothyroxine Sodium (Synthroid -) 88 mcg PO DAILY@0700 [facility] Last Admin: 01/04/18 06:27 Dose: 88 mcg Methotrexate (Mexate -) 2.5 mg PO Blunt@1000 [facility] Last Admin: 01/02/18 12:33 Dose: 2.5 mg Metoprolol Tartrate (Lopressor -) 50 mg PO TID [facility] Last Admin: 01/04/18 06:26 Dose: 50 mg Valsartan (Diovan -) 40 mg PO DAILY [facility] Last Admin: 01/03/18 12:09 Dose: 40 mg Review of Systems Unable to obtain, confusion - Objective Vital Signs: Last Vital Signs Temp Pulse Resp BP Pulse Ox 99.1 F 85 20 110/52 97 01/04/18 06:23 01/04/18 06:23 01/04/18 06:23 01/04/18 06:23 01/03/18 21:00 Intake & Output 01/01/18 01/02/18 01/03/18 01/04/18 23:59 23:59 23:59 23:59 Intake Total 320 150 130 Balance 320 150 130 Weight 180 lb 175 lb 2 oz 181 lb 6 oz 179 lb Constitutional: No Distress, Calm, Thin Neck: Supple Cardiovascular: S1 S2 Irregularly Irregular Respiratory: Diminished Gastrointestinal: Soft Benign Normal Bowel Sounds Ext: No edema Labs: CBC, BMP 01/04/18 06:46 Assessment/Plan ASSESSMENT: 1. Acute on chronic class I-II NYHA classification diastolic LV failure with pleural effusions, resolving 2. CAD angina pectoris 3. Persistent atrial fibrillation [id number] score of 5 on DOAC's 4. HTN 5. Parkinson's disease 6. Hypothyroidism 7. COPD, with pneumonia, resolving 8. Rheumatoid arthritis PLAN: 1. Continue with A/C with Eliquis, close monitoring of CBC 2. Continue Lopressor 3. Continue Diovan 4. Continue Lasix but change to PO 5. Antibiotics as per primary team 6. May be transferred to medical floor from the cardiovascular point of view Chiqui Raphael MD
[2018-01-04] MEDS: ALBUTEROL SO4 2.5/IPRATROPIUM 0.5 INH SOL 3 ML VIAL.NEB. NEB SCH ×4 (08:00→20:14)
[2018-01-04] MEDS: AMOX TR/POT CLAV 875MG/125MG TABLETS (FP) PO SCH ×2 (08:48→17:32)
[2018-01-04] MEDS: APIXABAN 5 MG TABLET PO SCH ×2 (09:52→21:04)
[2018-01-04] MEDS: FOLIC ACID 1 MG TABLET (FP) PO SCH (09:52)
[2018-01-04 10:06] LABS: ALBUMIN 2.2 g/dl (3.4-5.0); ANION GAP 9 (8-16); BILIRUBIN,TOTAL 0.5 mg/dL (0.2-1.0); BLOOD UREA NITROGEN 9 mg/dL (7-18); CALCIUM 7.5 mg/dL (8.5-10.1); CHLORIDE 88 mmol/L (98-107); CO2 38 mmol/L (21-32); CREATININE 0.8 mg/dL (0.55-1.02); GLUCOSE,RANDOM 93 mg/dL (74-106); SGOT/AST 17 U/L (15-37); SGPT/ALT < 6 U/L (12-78); SODIUM 135 mmol/L (136-145); TOT PROT 5.8 g/dl (6.4-8.2)
[2018-01-04 10:07] LABS: ALK PHOS 102 U/L (45-117)
[2018-01-04] MEDS: FUROSEMIDE 40 MG/4 ML INJECTABLE VIAL IVPUSH SCH (10:24)
[2018-01-04 10:37] LABS: POTASSIUM 2.7 mmol/L (3.5-5.1)
[2018-01-04] MEDS ORDERED: KCL 10 MEQ IVPB 10 MEQ/100 ML INFUS.BAG IVPB SCH (13:00)
[2018-01-04] MEDS: VALSARTAN 40 MG TABLET (FP) PO SCH (13:48)
--- NOTE | 2018-01-04 15:15 | PN ---
Progress Note, Physician History of Present Illness: improving patient more awake and alert breathing better - Current Medication List Current Medications: Active Medications Acetaminophen (Tylenol -) 650 mg PO Q6H PRN PRN Reason: FEVER Last Admin: 01/02/18 21:05 Dose: 650 mg Albuterol/Ipratropium (Duoneb -) 1 amp NEB RQID [facility] Last Admin: 01/04/18 12:00 Dose: 1 amp Amoxicillin/Clavulanate Potassium (Augmentin - 875mg Tablet) 1 tab PO BID@0800, 1730 [facility] Last Admin: 01/04/18 08:48 Dose: 1 tab Apixaban (Eliquis -) 5 mg PO BID [facility] Last Admin: 01/04/18 09:52 Dose: 5 mg Carbidopa/Levodopa (Sinemet 25/100 -) 1 each PO TID [facility] Last Admin: 01/04/18 13:48 Dose: 1 each Folic Acid (Folic Acid -) 1 mg PO DAILY [facility] Last Admin: 01/04/18 09:52 Dose: 1 mg Furosemide (Lasix -) 20 mg PO DAILY [facility] Guaifenesin (Robitussin Dm -) 10 ml PO Q6H PRN PRN Reason: COUGH Last Admin: 01/01/18 07:18 Dose: 10 ml Potassium Chloride 10 meq/ (Sodium Chloride) 105 mls @ 105 mls/hr IVPB Q60M [facility] Stop: 01/04/18 17:29 Levothyroxine Sodium (Synthroid -) 88 mcg PO DAILY@0700 [facility] Last Admin: 01/04/18 06:27 Dose: 88 mcg Methotrexate (Mexate -) 2.5 mg PO Blunt@1000 [facility] Last Admin: 01/02/18 12:33 Dose: 2.5 mg Metoprolol Tartrate (Lopressor -) 50 mg PO TID [facility] Last Admin: 01/04/18 13:48 Dose: 50 mg Valsartan (Diovan -) 40 mg PO DAILY [facility] Last Admin: 01/04/18 13:48 Dose: 40 mg - Objective Vital Signs: Vital Signs Temperature 98.3 F 01/04/18 14:42 Pulse Rate 111 H 01/04/18 14:42 Respiratory Rate 20 01/04/18 14:42 Blood Pressure 114/53 01/04/18 14:42 O2 Sat by Pulse Oximetry (%) 96 01/04/18 09:00 Constitutional: Yes: No Distress, Calm Cardiovascular: Yes: Regular Rate and Rhythm Respiratory: Yes: Regular, On Nasal O2, Poor Air Entry Gastrointestinal: Yes: Normal Bowel Sounds, Soft Musculoskeletal: Yes: WNL Extremities: Yes: WNL Neurological: Yes: Alert, Other Labs: CBC, BMP 01/04/18 06:46 01/04/18 06:46 INR, PTT INR 1.95 (0.82-1.09) H 12/29/17 16:19 Assessment/Plan Problem List - Problems (1) Afib Code(s): I48.91 - UNSPECIFIED ATRIAL FIBRILLATION Qualifiers: Atrial fibrillation type: permanent Qualified Code(s): I48.2 - Chronic atrial fibrillation (2) CHF (congestive heart failure) Code(s): I50.9 - HEART FAILURE, UNSPECIFIED Qualifiers: Heart failure type: diastolic Heart failure chronicity: acute on chronic Qualified Code(s): I50.33 - Acute on chronic diastolic (congestive) heart failure (3) COPD (chronic obstructive pulmonary disease) Code(s): J44.9 - CHRONIC OBSTRUCTIVE PULMONARY DISEASE, UNSPECIFIED Qualifiers: COPD type: unspecified COPD Qualified Code(s): J44.9 - Chronic obstructive pulmonary disease, unspecified (4) HTN (hypertension) Code(s): I10 - ESSENTIAL (PRIMARY) HYPERTENSION Qualifiers: Hypertension type: essential hypertension Qualified Code(s): I10 - Essential (primary) hypertension (5) Rheumatoid arthritis Code(s): M06.9 - RHEUMATOID ARTHRITIS, UNSPECIFIED Qualifiers: Rheumatoid arthritis location: unspecified site 6 pneumonia 7 uti 8 sepsis plan should be able to change to oral abx watch on oral abx watch for confusion wbc trending towards normal sepsis on admission resolving now
--- NOTE | 2018-01-04 15:18 | PN ---
Progress Note, Physician - Current Medication List Current Medications: Active Medications Acetaminophen (Tylenol -) 650 mg PO Q6H PRN PRN Reason: FEVER Last Admin: 01/02/18 21:05 Dose: 650 mg Albuterol/Ipratropium (Duoneb -) 1 amp NEB RQID [facility] Last Admin: 01/04/18 12:00 Dose: 1 amp Amoxicillin/Clavulanate Potassium (Augmentin - 875mg Tablet) 1 tab PO BID@0800, 1730 [facility] Last Admin: 01/04/18 08:48 Dose: 1 tab Apixaban (Eliquis -) 5 mg PO BID [facility] Last Admin: 01/04/18 09:52 Dose: 5 mg Carbidopa/Levodopa (Sinemet 25/100 -) 1 each PO TID [facility] Last Admin: 01/04/18 13:48 Dose: 1 each Folic Acid (Folic Acid -) 1 mg PO DAILY [facility] Last Admin: 01/04/18 09:52 Dose: 1 mg Furosemide (Lasix -) 20 mg PO DAILY [facility] Guaifenesin (Robitussin Dm -) 10 ml PO Q6H PRN PRN Reason: COUGH Last Admin: 01/01/18 07:18 Dose: 10 ml Potassium Chloride 10 meq/ (Sodium Chloride) 105 mls @ 105 mls/hr IVPB Q60M [facility] Stop: 01/04/18 17:29 Levothyroxine Sodium (Synthroid -) 88 mcg PO DAILY@0700 [facility] Last Admin: 01/04/18 06:27 Dose: 88 mcg Methotrexate (Mexate -) 2.5 mg PO Blunt@1000 [facility] Last Admin: 01/02/18 12:33 Dose: 2.5 mg Metoprolol Tartrate (Lopressor -) 50 mg PO TID [facility] Last Admin: 01/04/18 13:48 Dose: 50 mg Valsartan (Diovan -) 40 mg PO DAILY [facility] Last Admin: 01/04/18 13:48 Dose: 40 mg - Objective Vital Signs: Vital Signs Temperature 98.3 F 01/04/18 14:42 Pulse Rate 111 H 01/04/18 14:42 Respiratory Rate 20 01/04/18 14:42 Blood Pressure 114/53 01/04/18 14:42 O2 Sat by Pulse Oximetry (%) 96 01/04/18 09:00 HENT: Yes: Atraumatic Neck: Yes: Supple Cardiovascular: Yes: Regular Rate and Rhythm Respiratory: Yes: CTA Bilaterally Gastrointestinal: Yes: Normal Bowel Sounds Extremities: Yes: WNL Labs: CBC, BMP 01/04/18 06:46 01/04/18 06:46 INR, PTT INR 1.95 (0.82-1.09) H 12/29/17 16:19 Problem List - Problems (1) Right middle lobe pneumonia Assessment/Plan: abx course completed Code(s): J18.1 - LOBAR PNEUMONIA, UNSPECIFIED ORGANISM Qualifiers: Pneumonia type: due to unspecified organism Qualified Code(s): J18.1 - Lobar pneumonia, unspecified organism (2) HTN (hypertension) Code(s): I10 - ESSENTIAL (PRIMARY) HYPERTENSION Qualifiers: Hypertension type: essential hypertension Qualified Code(s): I10 - Essential (primary) hypertension (3) CHF (congestive heart failure) Code(s): I50.9 - HEART FAILURE, UNSPECIFIED Qualifiers: Heart failure type: diastolic Heart failure chronicity: acute on chronic Qualified Code(s): I50.33 - Acute on chronic diastolic (congestive) heart failure (4) COPD (chronic obstructive pulmonary disease) Code(s): J44.9 - CHRONIC OBSTRUCTIVE PULMONARY DISEASE, UNSPECIFIED Qualifiers: COPD type: unspecified COPD Qualified Code(s): J44.9 - Chronic obstructive pulmonary disease, unspecified (5) Afib Code(s): I48.91 - UNSPECIFIED ATRIAL FIBRILLATION Qualifiers: Atrial fibrillation type: permanent Qualified Code(s): I48.2 - Chronic atrial fibrillation (6) Hypothyroid Code(s): E03.9 - HYPOTHYROIDISM, UNSPECIFIED Qualifiers: Hypothyroidism type: unspecified Qualified Code(s): E03.9 - Hypothyroidism , unspecified (7) Hypokalemia Assessment/Plan: will replace K Code(s): E87.6 - HYPOKALEMIA Assessment/Plan dc if K is wnl DR VIGIL COVERING ME UNTIL WEDNESDAY
[2018-01-04] MEDS: POTASSIUM CHLORIDE 10 MEQ in SODIUM CHLORIDE 100 ML IVPB SCH ×2 (15:20→16:33)
[2018-01-04] MEDS: POTASSIUM CHLORIDE TABS 20 MEQ TABLET.ER (FP) PO SCH (15:44)
[2018-01-04 17:24] LABS: ALBUMIN 2.1 g/dl (3.4-5.0); ANION GAP 8 (8-16); BILIRUBIN,TOTAL 0.5 mg/dL (0.2-1.0); BLOOD UREA NITROGEN 10 mg/dL (7-18); CALCIUM 7.5 mg/dL (8.5-10.1); CHLORIDE 88 mmol/L (98-107); CO2 37 mmol/L (21-32); CREATININE 0.7 mg/dL (0.55-1.02); GLUCOSE,RANDOM 124 mg/dL (74-106); SGOT/AST 18 U/L (15-37); SODIUM 133 mmol/L (136-145); TOT PROT 5.5 g/dl (6.4-8.2)
[2018-01-04 17:33] LABS: ALK PHOS 94 U/L (45-117); SGPT/ALT 8 U/L (12-78)
[2018-01-04] MEDS: guaiFENesin/D-METHORPHAN HB 10 ML UNIT-DOSE CUPS PO PRN (21:05)
[2018-01-05] MEDS: ACETAMINOPHEN 325 MG TABLET (FP) PO PRN (01:41)
[2018-01-05] MEDS ORDERED: PT OWN MED DRAWER 7, Y5N ONE (06:28)
[2018-01-05 06:39] LABS: EOS % 1.8 % (0-4.5); HEMATOCRIT 38.3 % (32.4-45.2); HEMOGLOBIN 12.8 GM/dL (10.7-15.3); MCHC 33.3 g/dl (32.0-36.0); MEAN CELL VOLUME 98.9 fl (80-96); MEAN PLT VOLUME 8.6 fl (7.5-11.1); MONO % 12.8 % (3.8-10.2); NEUT % 48.4 % (42.8-82.8); PLATELET COUNT 288 K/MM3 (134-434); RBC 3.87 M/mm3 (3.60-5.2); RDW 15.9 % (11.6-15.6)
[2018-01-05] MEDS: CARBIDOPA/LEVODOPA 25/100 TABLET (FP) PO SCH ×2 (06:42→14:29)
[2018-01-05] MEDS: LEVOTHYROXINE NA 88 MCG TABLET (FP) PO SCH (06:42)
[2018-01-05] MEDS: METOPROLOL TARTRATE 50 MG TABLET (FP) PO SCH ×2 (06:42→14:29)
[2018-01-05 06:59] LABS: ANION GAP 6 (8-16); BLOOD UREA NITROGEN 8 mg/dL (7-18); CALCIUM 7.8 mg/dL (8.5-10.1); CHLORIDE 92 mmol/L (98-107); CO2 36 mmol/L (21-32); CREATININE 0.6 mg/dL (0.55-1.02); GLUCOSE,RANDOM 104 mg/dL (74-106); POTASSIUM 3.4 mmol/L (3.5-5.1); SODIUM 134 mmol/L (136-145)
[2018-01-05] MEDS: ALBUTEROL SO4 2.5/IPRATROPIUM 0.5 INH SOL 3 ML VIAL.NEB. NEB SCH ×2 (08:12→11:24)
[2018-01-05] MEDS: VALSARTAN 40 MG TABLET (FP) PO SCH (09:00)
[2018-01-05] MEDS: AMOX TR/POT CLAV 875MG/125MG TABLETS (FP) PO SCH (09:00)
[2018-01-05] MEDS: POTASSIUM CHLORIDE TABS 20 MEQ TABLET.ER (FP) PO SCH (09:00)
[2018-01-05] MEDS: FOLIC ACID 1 MG TABLET (FP) PO SCH (09:01)
[2018-01-05] MEDS: APIXABAN 5 MG TABLET PO SCH (09:01)
[2018-01-05] MEDS ORDERED: FUROSEMIDE 20 MG TABLET (FP) PO SCH (10:00)
--- NOTE | 2018-01-05 11:23 | PN ---
Progress Note, Physician History of Present Illness: Sensorium improved, persists in rate-controlled afib. - Current Medication List Current Medications: Active Medications Acetaminophen (Tylenol -) 650 mg PO Q6H PRN PRN Reason: FEVER Last Admin: 01/05/18 01:41 Dose: 650 mg Albuterol/Ipratropium (Duoneb -) 1 amp NEB RQID [facility] Last Admin: 01/05/18 08:12 Dose: 1 amp Amoxicillin/Clavulanate Potassium (Augmentin - 875mg Tablet) 1 tab PO BID@0800, 1730 [facility] Last Admin: 01/05/18 09:00 Dose: 1 tab Apixaban (Eliquis -) 5 mg PO BID [facility] Last Admin: 01/05/18 09:01 Dose: 5 mg Carbidopa/Levodopa (Sinemet 25/100 -) 1 each PO TID [facility] Last Admin: 01/05/18 06:42 Dose: 1 each Folic Acid (Folic Acid -) 1 mg PO DAILY [facility] Last Admin: 01/05/18 09:01 Dose: 1 mg Furosemide (Lasix -) 20 mg PO DAILY [facility] Last Admin: 01/05/18 09:01 Dose: 20 mg Guaifenesin (Robitussin Dm -) 10 ml PO Q6H PRN PRN Reason: COUGH Last Admin: 01/04/18 21:05 Dose: 10 ml Levothyroxine Sodium (Synthroid -) 88 mcg PO DAILY@0700 [facility] Last Admin: 01/05/18 06:42 Dose: 88 mcg Methotrexate (Mexate -) 2.5 mg PO Blunt@1000 [facility] Last Admin: 01/02/18 12:33 Dose: 2.5 mg Metoprolol Tartrate (Lopressor -) 50 mg PO TID [facility] Last Admin: 01/05/18 06:42 Dose: 50 mg Potassium Chloride (K-Dur -) 40 meq PO DAILY [facility] Last Admin: 01/05/18 09:00 Dose: 40 meq Valsartan (Diovan -) 40 mg PO DAILY [facility] Last Admin: 01/05/18 09:00 Dose: 40 mg - Objective Vital Signs: Vital Signs Temperature 98.4 F 01/05/18 08:52 Pulse Rate 98 H 01/05/18 08:52 Respiratory Rate 20 01/05/18 08:52 Blood Pressure 146/62 01/05/18 08:52 O2 Sat by Pulse Oximetry (%) 95 01/05/18 08:52 Constitutional: Yes: No Distress, Calm Neck: Yes: Supple Cardiovascular: Yes: Pulse Irregular Respiratory: Yes: Regular, CTA Bilaterally Gastrointestinal: Yes: Normal Bowel Sounds, Soft Edema: No Labs: CBC, BMP 01/05/18 06:00 01/05/18 06:00 INR, PTT INR 1.95 (0.82-1.09) H 12/29/17 16:19 - ....Imaging EKG: Report Reviewed (Tele: Rate-controlled afib) Problem List - Problems (1) Afib Code(s): I48.91 - UNSPECIFIED ATRIAL FIBRILLATION Qualifiers: Atrial fibrillation type: permanent Qualified Code(s): I48.2 - Chronic atrial fibrillation (2) CHF (congestive heart failure) Code(s): I50.9 - HEART FAILURE, UNSPECIFIED Qualifiers: Heart failure type: diastolic Heart failure chronicity: acute on chronic Qualified Code(s): I50.33 - Acute on chronic diastolic (congestive) heart failure (3) HTN (hypertension) Code(s): I10 - ESSENTIAL (PRIMARY) HYPERTENSION Qualifiers: Hypertension type: essential hypertension Qualified Code(s): I10 - Essential (primary) hypertension (4) Rheumatoid arthritis Code(s): M06.9 - RHEUMATOID ARTHRITIS, UNSPECIFIED Qualifiers: Rheumatoid arthritis location: unspecified site (5) Hypothyroid Code(s): E03.9 - HYPOTHYROIDISM, UNSPECIFIED Qualifiers: Hypothyroidism type: unspecified Qualified Code(s): E03.9 - Hypothyroidism , unspecified (6) Right middle lobe pneumonia Code(s): J18.1 - LOBAR PNEUMONIA, UNSPECIFIED ORGANISM Qualifiers: Pneumonia type: due to unspecified organism Qualified Code(s): J18.1 - Lobar pneumonia, unspecified organism Assessment/Plan 01/03/2018 Echo: Normal LV and RV size and fxn, tr-mild AR 1. Acute on chronic class I-II NYHA classification diastolic LV failure with pleural effusions, resolving 2. CAD angina pectoris 3. Persistent atrial fibrillation [id number] score of 5 on DOAC's 4. HTN 5. Parkinson's disease 6. Hypothyroidism 7. COPD, with pneumonia, resolving 8. Rheumatoid arthritis PLAN: 1. Continue with A/C with Eliquis 5 bid, close monitoring of CBC 2. Continue Lopressor 50 tid 3. Continue Diovan 40 qd 4. Continue Lasix 20 qd 5. Complete Antibiotic course as per primary team 6. D/c planning
[2018-01-05 14:42] VITALS: BP 134/66; PULSE 70; TEMP 98.2
--- NOTE | 2018-01-05 16:16 | PN ---
Progress Note, Physician History of Present Illness: improving patient more awake and alert breathing better sepsis resolved patient doing much better wbc normal stable off of abx - Objective Vital Signs: Vital Signs Temperature 98.2 F 01/05/18 14:41 Pulse Rate 70 01/05/18 14:41 Respiratory Rate 20 01/05/18 14:41 Blood Pressure 134/66 01/05/18 14:41 O2 Sat by Pulse Oximetry (%) 95 01/05/18 08:52 Constitutional: Yes: No Distress, Calm Cardiovascular: Yes: Regular Rate and Rhythm Respiratory: Yes: Regular, Poor Air Entry Gastrointestinal: Yes: Normal Bowel Sounds, Soft Musculoskeletal: Yes: WNL Extremities: Yes: WNL Neurological: Yes: Alert Psychiatric: Yes: Alert Labs: CBC, BMP 01/05/18 06:00 01/05/18 06:00 INR, PTT INR 1.95 (0.82-1.09) H 12/29/17 16:19 Assessment/Plan Problem List - Problems (1) Afib Code(s): I48.91 - UNSPECIFIED ATRIAL FIBRILLATION Qualifiers: Atrial fibrillation type: permanent Qualified Code(s): I48.2 - Chronic atrial fibrillation (2) CHF (congestive heart failure) Code(s): I50.9 - HEART FAILURE, UNSPECIFIED Qualifiers: Heart failure type: diastolic Heart failure chronicity: acute on chronic Qualified Code(s): I50.33 - Acute on chronic diastolic (congestive) heart failure (3) COPD (chronic obstructive pulmonary disease) Code(s): J44.9 - CHRONIC OBSTRUCTIVE PULMONARY DISEASE, UNSPECIFIED Qualifiers: COPD type: unspecified COPD Qualified Code(s): J44.9 - Chronic obstructive pulmonary disease, unspecified (4) HTN (hypertension) Code(s): I10 - ESSENTIAL (PRIMARY) HYPERTENSION Qualifiers: Hypertension type: essential hypertension Qualified Code(s): I10 - Essential (primary) hypertension (5) Rheumatoid arthritis Code(s): M06.9 - RHEUMATOID ARTHRITIS, UNSPECIFIED Qualifiers: Rheumatoid arthritis location: unspecified site 6 pneumonia 7 uti 8 sepsis plan continue oral abx for a week watch for confusion wbc normal sepsis on admission,now resolved incentive mai
== END 2018-01-05 15:07 | DRG 291 ==
LOC: JER 16:05 → JERBED 19:42 → OBSVTOIN 22:00 → J4S 12-30 12:48
PROVIDERS: ADMIT Internal Medicine; ATTEND Internal Medicine
DX: I11.0 Hypertensive heart disease with heart failure (principal); J18.9 Pneumonia, unspecified organism; I48.1 Persistent atrial fibrillation; N39.0 Urinary tract infection, site not specified; I50.33 Acute on chronic diastolic (congestive) heart failure; I25.110 Atherosclerotic heart disease of native coronary artery with unstable angina pectoris; M06.9 Rheumatoid arthritis, unspecified; I48.91 Unspecified atrial fibrillation; I45.10 Unspecified right bundle-branch block; E03.9 Hypothyroidism, unspecified; G20 Parkinson's disease; J44.9 Chronic obstructive pulmonary disease, unspecified; E87.6 Hypokalemia
CPT/HCPCS: 36415; 71045-TC-FY; 80048; 80053; 81003; 81015; 82550; 82803; 83605; 84484; 85025; 85610; 85730; 87040; 87086; 87186; 93005; 93010; 93306-TC; 94640; 97116-GP; 97161-GP; 99285-25; G0378; J0131; J7030; J7620; J8610